=== PATIENT | female | born 1935 | race Caucasian/White ===

== ENCOUNTER → 2020-04-12 15:04 | Outpatient (BNVA) | payer MEDICARE, SELFPAY | PROVIDERS: PCP Family Medicine; Visit Provider Nurse Practitioner Family | DX: S67.196A Crushing injury of right little finger, initial encounter (principal); S62.616A Displaced fracture of proximal phalanx of right little finger, initial encounter for closed fracture; M19.041 Primary osteoarthritis, right hand; M79.89 Other specified soft tissue disorders; W23.0XXA Caught, crushed, jammed, or pinched between moving objects, initial encounter | CPT/HCPCS: 73140 ==

== ENCOUNTER → 2020-05-03 11:40 | Outpatient (BNVA) | payer MEDICARE, SELFPAY | PROVIDERS: PCP Family Medicine; Referring Provider Nurse Practitioner Family; Visit Provider Specialist | DX: M79.644 Pain in right finger(s) (principal) | CPT/HCPCS: 73140 ==

== ENCOUNTER 2020-07-13 13:22 | Outpatient (CLI) | payer MEDICARE, SELFPAY ==
--- NOTE | 2020-07-13 12:30 | XR_ITS ---
WS: [id number] RIBS LEFT WITH CHEST TECHNIQUE: 3 views of the left ribs with PA chest CLINICAL INFORMATION: rib pain post fall on 07/03/20 COMPARISON: FINDINGS: Moderate chronic emphysematous changes. No acute pulmonary infiltrates. Normal cardiac silhouette. To rtuous thoracic aorta. Aortic calcification. Osteopenia. Thoracolumbar scoliosis with chronic appeari ng compression deformities in the lower thoracic and upper lumbar spine. Advanced degenerative arthritis left glenohumeral joint with joint space narrowing. No visualized acu te left rib fractures. XR/XR ribs LT mn 3V w CXR1V [id number] IMPRESSION: 1. No visualized acute left rib fractures. 2. Lungs are well aerated. 3. Thoracolumbar scoliosis.
== END 2020-07-13 13:23 | disposition home or self-care (01) ==
LOC: RADWPI 13:26
PROVIDERS: PCP Family Medicine; Visit Provider Nurse Practitioner Family
DX: R07.81 Pleurodynia (principal); M41.85 Other forms of scoliosis, thoracolumbar region
CPT/HCPCS: 71101

== ENCOUNTER → 2020-08-03 16:00 | Outpatient (BNVA) | payer MEDICARE, SELFPAY | PROVIDERS: PCP Family Medicine; Visit Provider Nurse Practitioner Family | DX: Z11.59 Encounter for screening for other viral diseases (principal); Z20.828 Contact with and (suspected) exposure to other viral communicable diseases; J06.9 Acute upper respiratory infection, unspecified | CPT/HCPCS: 87635 ==

== ENCOUNTER → 2020-12-08 10:41 | Outpatient (BNVA) | payer MEDICARE, SELFPAY | PROVIDERS: PCP Family Medicine; Visit Provider Nurse Practitioner Family | DX: Z13.6 Encounter for screening for cardiovascular disorders (principal); R60.0 Localized edema; E78.2 Mixed hyperlipidemia; M79.10 Myalgia, unspecified site; Z79.899 Other long term (current) drug therapy | CPT/HCPCS: 80053; 80061; 82306; 83036; 84443; 85025 ==

== ENCOUNTER → 2021-06-15 00:01 | Outpatient (BNVA) | payer MEDICARE, SELFPAY | PROVIDERS: PCP Family Medicine; Visit Provider Nurse Practitioner Family | DX: E78.2 Mixed hyperlipidemia (principal); I10 Essential (primary) hypertension; M79.7 Fibromyalgia; R73.9 Hyperglycemia, unspecified | CPT/HCPCS: 80053; 80061; 82306; 82607; 83036; 84443; 85025; 85651; 86140 ==

== ENCOUNTER 2021-06-21 12:28 | Outpatient (CLI) | payer MEDICARE, SELFPAY ==
--- NOTE | 2021-06-21 12:45 | USCV_ITS ---
Valeria Knight Age: 85 Gender: F : 1935 Exam Date: 06/21/2021 12:50 Ordering Phys: Diana Richardson MD ([email or web address]) Technologist: Mariama Vidal [place] [facility] [place]: Supraventricular tachycardia BP: 120 / 73 HR: 64 Rhythm: Other Technical Quality: Adequate MEASUREMENTS (Male / Female) Normal Values 2D ECHO LV Diastolic Diameter PLAX 4.2 cm 4.2 - 5.9 / 3.9 - 5.3 cm LV Systolic Diameter PLAX 2.6 cm IVS Diastolic Thickness 1.3 cm 0.6 - 1.0 / 0.6 - 0.9 cm IVS Systolic Thickness 1.3 cm LVPW Diastolic Thickness 1.4 cm 0.6 - 1.0 / 0.6 - 0.9 cm LVPW Systolic Thickness 1.6 cm RV Chamber Size 2.6 cm LVOT Diameter 2.0 cm LV Ejection Fraction 2D Teich 66.9 % LV Ejection Fraction MOD 2C 31.7 % LV Ejection Fraction 2C AL 29.6 % LA Diameter 2.5 cm LA Width 3.4 cm LA Height 3.9 cm RA Width 3.6 cm RA Height 3.8 cm Aorta at Sinotubular Diameter 2.2 cm M-MODE Aortic Annulus Diameter 3.0 cm LA Ao Ratio MM 0.8 DOPPLER AV Peak Velocity 105.0 cm/s LVOT Peak Velocity 90.0 cm/s AV Area Cont Eq vti 2.1 cm squared AV Area Cont Eq pk 2.7 cm squared MV Area PHT 3.4 cm squared Mitral E to A Ratio 1.8 MV E' Velocity 66.8 cm/s Mitral E to MV E' Ratio 13.1 Mitral E to LV E' Lateral Ratio 12.6 Mitral E to LV E' Septal Ratio 13.7 TR Peak Velocity 253.7 cm/s TR Peak Gradient 25.7 mmHg TV Peak E Velocity 39.0 cm/s Right Atrial Pressure 3.0 mmHg Pulmonary Artery Systolic Pressu 28.7 mmHg PV Peak Velocity 77.0 cm/s RV Acceleration Time 0.1 s RV Ejection Time 0.3 s RV AcT/ET 0.3 FINDINGS Left Ventricle Normal left ventricular size, systolic function and mildly increased wall thickness, with no regional wall motion abnormalities. Left ventricular ejection fraction is estimated at 60 %. Normal diastolic function. Right Ventricle Normal right ventricular size and systolic function. Right ventricular systolic pressure 28.7 mmHg. Right Atrium Normal right atrial size. Left Atrium Mildly increased left atrial size. Mitral Valve Moderate mitral annular calcification. Mildly thickened mitral valve. No mitral valve stenosis. Mild mitral valve regurgitation. Aortic Valve Mildly thickened trileaflet aortic valve. No aortic valve stenosis. Mxwa-rt-apjayhnw aortic valve regurgitation. Tricuspid Valve Structurally normal tricuspid valve. Mild tricuspid valve regurgitation. Pulmonic Valve Structurally normal pulmonic valve. Trace pulmonary valve regurgitation. Pericardium No pericardial effusion. Aorta Normal size aortic root and proximal ascending aorta. CONCLUSIONS 1. Normal left ventricular size, systolic function and mildly increased wall thickness, with no regional wall motion abnormalities. Left ventricular ejection fraction is estimated at 60 %. Normal diastolic function. 2. Ecdz-ei-ciaokplb aortic valve regurgitation. 3. Mildly increased left atrial size. 4 Mild tricuspid valve regurgitation. 5. No prior similar studies to compare. Diana Richardson MD (Electronically Signed) Final Date: 22 June 2021 18:58 S
== END 2021-06-21 12:29 | disposition home or self-care (01) ==
LOC: RAD 12:31
PROVIDERS: PCP Family Medicine; Visit Provider Internal Medicine Cardiovascular Disease
DX: I47.1 Supraventricular tachycardia (principal); I25.10 Atherosclerotic heart disease of native coronary artery without angina pectoris; I08.2 Rheumatic disorders of both aortic and tricuspid valves
CPT/HCPCS: 93306

== ENCOUNTER → 2021-11-27 12:24 | Outpatient (BNVA) | payer MEDICARE, SELFPAY | PROVIDERS: PCP Family Medicine; Visit Provider Nurse Practitioner Family | DX: I10 Essential (primary) hypertension (principal); M79.7 Fibromyalgia; R73.9 Hyperglycemia, unspecified; R51.9 Headache, unspecified; M25.512 Pain in left shoulder; E78.2 Mixed hyperlipidemia | CPT/HCPCS: 80053; 80061; 82306; 82607; 83036; 84443; 85025 ==

== ENCOUNTER 2022-01-08 09:07 | Outpatient (CLI) | payer MEDICARE, SELFPAY ==
--- NOTE | 2022-01-08 09:30 | MR_ITS ---
WS: [id number] MRI LEFT SHOULDER NONCONTRAST TECHNIQUE: Sagittal T2, coronal T1, T2 and proton density imaging. Axial gradient PDE imaging. CLINICAL INFORMATION: M25.512 - Pain in left shoulder COMPARISON: None. FINDINGS: Moderate degenerative arthritis AC joint. Narrowing of the subacromial space. Slight subacromial spur ring. Tiny amount of edema at the AC joint. Chronic appearing healed fracture involving the humeral n neena. This appears similar to 2012 radiograph. Hypertrophic spurring along the medial humeral head and neck. Chronic thinning of the distal supraspinatus appears intact. Normal infraspinatus. Normal teres minor . Chronic appearing atrophy of the subscapularis muscle belly. Partial-thickness tear involving the d istal subscapularis with medial subluxation of the biceps tendon. Intra-articular loose body in the d orsal glenohumeral joint along the posterior glenoid rim. Marked degenerative fraying and irregularit y of the glenoid labrum. Cluster of ganglion cysts along the inferior glenoid rim and neck of the sca pula. MR/MR shoulder LT wo con* [id number] IMPRESSION: 1. Moderate degenerative arthritis AC joint with mild downsloping acromion. Sl ight subacromial spurring. Mild edema at the AC joint. 2. Chronic thinning of the supraspinatus appears intact. Infraspinatus and ter es minor appears intact. Chronic appearing tear of the distal subscapularis wit h medial subluxation of the biceps tendon. Chronic atrophy of the subscapularis muscle belly. 3. Marked hypertrophic changes at the glenohumeral joint with hypertrophic spu rring along the medial humeral head and neck. Narrowing of the glenohumeral kylah nt. 4. Intra-articular loose body in the dorsal glenohumeral joint adjacent to the posterior glenoid rim. 5. Chronic appearing healed fracture involving the humeral neck. This is simil ar to 2012. No evidence of acute fracture.
== END 2022-01-08 09:08 | disposition home or self-care (01) ==
LOC: RAD 09:12
PROVIDERS: PCP Family Medicine; Visit Provider Nurse Practitioner Family
DX: M19.012 Primary osteoarthritis, left shoulder (principal); R60.0 Localized edema
CPT/HCPCS: 73221

== ENCOUNTER 2022-01-11 06:00 | Outpatient (RCR) | payer MEDICARE, SELFPAY | END 2022-02-09 23:59 | disposition home or self-care (01) | LOC: TPT 06:00 | PROVIDERS: PCP Family Medicine; Referring Provider Nurse Practitioner Family; Visit Provider Nurse Practitioner Family | DX: M25.512 Pain in left shoulder (principal) | CPT/HCPCS: 97110; 97140; 97163 ==

== ENCOUNTER 2022-02-10 06:00 | Outpatient (RCR) | payer MEDICARE, SELFPAY | END 2022-03-12 23:59 | disposition home or self-care (01) | LOC: TPT 06:00 | PROVIDERS: PCP Family Medicine; Referring Provider Nurse Practitioner Family; Visit Provider Nurse Practitioner Family | DX: M25.512 Pain in left shoulder (principal) | CPT/HCPCS: 97110; 97140 ==

== ENCOUNTER 2022-03-13 06:00 | Outpatient (RCR) | payer MEDICARE, SELFPAY | END 2022-03-19 23:59 | disposition home or self-care (01) | LOC: TPT 06:00 | PROVIDERS: PCP Family Medicine; Referring Provider Nurse Practitioner Family; Visit Provider Nurse Practitioner Family | DX: M25.512 Pain in left shoulder (principal) | CPT/HCPCS: 97110 ==

== ENCOUNTER → 2022-03-26 14:27 | Outpatient (BNVA) | payer MEDICARE, SELFPAY | PROVIDERS: PCP Family Medicine; Visit Provider Nurse Practitioner Family | DX: R05.9 Cough, unspecified (principal); B34.9 Viral infection, unspecified | CPT/HCPCS: 87635 ==

== ENCOUNTER → 2022-04-01 14:30 | Outpatient (BNVA) | payer MEDICARE, SELFPAY | PROVIDERS: PCP Family Medicine; Visit Provider Nurse Practitioner | DX: R53.83 Other fatigue (principal); R05.9 Cough, unspecified | CPT/HCPCS: 71046; 80053; 81000; 84443; 85025 ==

== ENCOUNTER → 2022-04-02 07:31 | Outpatient (BNVA) | payer MEDICARE, SELFPAY | PROVIDERS: PCP Family Medicine; Visit Provider Nurse Practitioner | DX: R53.83 Other fatigue (principal); R05.9 Cough, unspecified; R94.31 Abnormal electrocardiogram [ECG] [EKG] | CPT/HCPCS: 84484 ==

== ENCOUNTER → 2022-04-03 10:25 | Outpatient (BNVA) | payer MEDICARE, SELFPAY | PROVIDERS: PCP Family Medicine; Visit Provider Internal Medicine Cardiovascular Disease | DX: I25.10 Atherosclerotic heart disease of native coronary artery without angina pectoris (principal); I45.10 Unspecified right bundle-branch block; I47.1 Supraventricular tachycardia; E78.2 Mixed hyperlipidemia; Z98.61 Coronary angioplasty status; R74.8 Abnormal levels of other serum enzymes; I10 Essential (primary) hypertension; Z87.891 Personal history of nicotine dependence | CPT/HCPCS: 99214 ==

== ENCOUNTER → 2022-04-08 10:41 | Outpatient (BNVA) | payer MEDICARE, SELFPAY | PROVIDERS: PCP Family Medicine; Visit Provider Nurse Practitioner | DX: R74.8 Abnormal levels of other serum enzymes (principal); R53.83 Other fatigue; R63.0 Anorexia; R63.4 Abnormal weight loss; R53.1 Weakness | CPT/HCPCS: 80053; 86705; 86706; 86709; 86803; 87340 ==

== ENCOUNTER → 2022-05-28 10:41 | Outpatient (BNVA) | payer MEDICARE, SELFPAY | PROVIDERS: PCP Family Medicine; Visit Provider Family Medicine | DX: M79.7 Fibromyalgia (principal); I10 Essential (primary) hypertension; E78.2 Mixed hyperlipidemia; K21.9 Gastro-esophageal reflux disease without esophagitis | CPT/HCPCS: 80053; 80061; 84443; 85025 ==

== ENCOUNTER 2022-06-07 13:45 | Outpatient (CLI) | payer MEDICARE, SELFPAY ==
--- NOTE | 2022-06-07 15:00 | CTR_ITS ---
PROCEDURE INFORMATION: Exam: CT Abdomen And Pelvis Without Contrast Exam date and time: 06/07/2022 3:19 PM Age: 86 years old Clinical indication: Other: Unexplained weight loss, weakness in legs; Additional info: R63.4 - abnormal weight loss TECHNIQUE: Imaging protocol: Computed tomography of the abdomen and pelvis without contrast. Radiation optimization: All CT scans at this facility use at least one of these dose optimization techniques: automated exposure control; mA and/or kV adjustment per patient size (includes targeted exams where dose is matched to clinical indication); or iterative reconstruction. COMPARISON: CR XR chest 2V* [id number] 04/01/2022 2:30 PM RADIATION DOSE METRICS: Total DLP (mGy-cm): 924.03 FINDINGS: Lungs: The visualized portions of the lung bases are normal. The heart size is at the upper limit of normal. Some mitral and aortic annulus ossifications are seen. Liver: Appears unremarkable on the non-contrast CT. Gallbladder and bile ducts: No calcified stones. No ductal dilation. Pancreas: Appears unremarkable on the non-contrast CT. No ductal dilation. Spleen: Appears unremarkable on the non-contrast CT. No splenomegaly. Adrenal glands: Normal. No mass. Kidneys and ureters: Left kidney upper pole 7 x 9 mm simple cyst is noted. Left kidney lower pole 2.6 x 2.6 cm simple cyst is seen. No hydronephrosis, ureterectasis or ureteral calculi. Stomach and bowel: The contrast opacified stomach shows nonspecific mild gastric fold prominence. Tiny hiatal hernia is seen. The contrast opacified small bowel loops in the abdomen and pelvis appear unremarkable. The noncontrast opacified colonic loops show owmv-vs-nwlknhga gas and fecal material in the ascending and transverse colon. The descending and sigmoid colon are not well distended, limiting assessment. Mild sigmoid colonic diverticulosis is seen, without CT evidence of diverticulitis. Appendix: No appendix is specifically identified. There is no evidence of fluid collections or inflammatory stranding in the right lower quadrant. Intraperitoneal space: No abdominal ascites. No free air. There are numerous benign phleboliths in the pelvis. Vasculature: No abdominal aortic aneurysm. Moderate to severe atherosclerotic vascular calcifications are seen with calcifications at the origins of the mesenteric and renal arteries. Lymph nodes: No enlarged lymph nodes. Urinary bladder: The bladder is not well distended, limiting assessment. Reproductive: Unremarkable as visualized. Bones/joints: No acute osseous abnormality seen. There is mild levoconvex rotoscoliosis of the upper lumbar spine. Severe degenerative disc disease and facet disease changes are seen throughout the lumbar spine. There are multiple levels of moderate to severe stenosis. There appears to be moderate L3-L4 and L4-L5 central spinal stenosis. Assessment is limited on CT. Mild bilateral hip degenerative changes are seen. Soft tissues: Unremarkable. CT/CT abdomen pelvis wo con [id number] IMPRESSION: 1. No acute abnormality seen on the non-contrast abdominal and pelvic CT. 2. Severe degenerative changes of the lumbar spine, as noted above. 3. Moderate to severe atherosclerotic vascular calcifications, as noted above. COMMENTS: Consistent with the [employer]'s Incidental Findings Committee white paper (J Am Kishor Radiol 2018): Any incidental renal lesion less than 1 cm or classified as too small to characterize, or any incidental cystic renal lesion characterized as simple-appearing, is likely benign. No follow-up imaging is recommended for these lesions per consensus recommendations based on imaging criteria.
== END 2022-06-07 13:46 | disposition home or self-care (01) ==
LOC: RAD 13:46
PROVIDERS: PCP Family Medicine; Visit Provider Nurse Practitioner
DX: R63.4 Abnormal weight loss (principal); R74.8 Abnormal levels of other serum enzymes; I70.8 Atherosclerosis of other arteries
CPT/HCPCS: 74176

== ENCOUNTER → 2022-06-10 13:14 | Outpatient (BNVA) | payer MEDICARE, SELFPAY | PROVIDERS: PCP Family Medicine; Visit Provider Nurse Practitioner Family | DX: J06.9 Acute upper respiratory infection, unspecified (principal); R05.9 Cough, unspecified; J40 Bronchitis, not specified as acute or chronic; Z20.822 Contact with and (suspected) exposure to COVID-19 | CPT/HCPCS: 80053; 87635 ==

== ENCOUNTER → 2022-09-26 10:57 | Outpatient (BNVA) | payer MEDICARE, SELFPAY | PROVIDERS: PCP Family Medicine; Visit Provider Internal Medicine Cardiovascular Disease | DX: I25.10 Atherosclerotic heart disease of native coronary artery without angina pectoris (principal); I10 Essential (primary) hypertension; Z98.61 Coronary angioplasty status; Z87.891 Personal history of nicotine dependence | CPT/HCPCS: 99214 ==

== ENCOUNTER 2022-12-25 19:24 | Emergency (ER) | payer MEDICARE, SELFPAY ==
[2022-12-25 19:25] VITALS: BMI 25.6
--- NOTE | 2022-12-25 19:29 | CTR_ITS ---
PROCEDURE INFORMATION: Exam: CT Head Without Contrast Exam date and time: 12/25/2022 7:48 PM Age: 87 years old Clinical indication: Speech disturbance; Patient HX: Arrival via EMS for slurred speech per family. ; Additional info: AMS TECHNIQUE: Imaging protocol: Computed tomography of the head without contrast. Radiation optimization: All CT scans at this facility use at least one of these dose optimization techniques: automated exposure control; mA and/or kV adjustment per patient size (includes targeted exams where dose is matched to clinical indication); or iterative reconstruction. REPORTING DATA: Count of CT and Cardiac NM exams in prior 12 months: This patient has received [address] and 0 known cardiac nuclear medicine studies in the 12 months prior to the current study. COMPARISON: CT head wo/w con [id number] 03/16/2019 2:37 PM RADIATION DOSE METRICS: Total DLP (mGy-cm): 845.18 FINDINGS: Brain: Large amount diffuse white matter disease likely reflecting chronic microvascular ischemic changes. Cerebral ventricles: No ventriculomegaly. Paranasal sinuses: Visualized sinuses are unremarkable. No fluid levels. Mastoid air cells: Visualized mastoid air cells are well aerated. Bones/joints: Unremarkable. No acute fracture. Soft tissues: Unremarkable. CT/CT head wo con* [id number] IMPRESSION: Negative for intracranial hemorrhage or mass effect.
--- NOTE | 2022-12-25 19:29 | XRR_ITS ---
PROCEDURE INFORMATION: Exam: XR Chest Exam date and time: 12/25/2022 7:49 PM Age: 87 years old Clinical indication: Cough; Additional info: Mas TECHNIQUE: Imaging protocol: Radiologic exam of the chest. Views: 1 view. COMPARISON: CR XR chest 2V* [id number] 04/01/2022 2:30 PM FINDINGS: Lungs: Unremarkable. No consolidation. Pleural spaces: Unremarkable. No pleural effusion. No pneumothorax. Heart/Mediastinum: Cardiomegaly. Bones/joints: Unremarkable. XR/XR chest 1V portable [id number] IMPRESSION: Cardiomegaly, negative for infiltrate.
--- NOTE | 2022-12-25 19:30 | ECG_ITS ---
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
--- NOTE | 2022-12-25 19:30 | W.ED.NEUROSD ---
HPI - Neuro Symptoms/Deficit General: Chief Complaint: Altered Mental Status Stated Complaint: ams Time Seen by Provider: 12/25/22 19:26 Source: patient and EMS Mode of arrival: EMS Limitations: no limitations History of Present Illness: 87-year-old female Primus was talking to her son on the phone roughly an hour ago over the phone she was having confusion and slurred speech it started abruptly per EMS and states it lasted 20 minutes by time EMS arrived her symptoms completely resolved she is asymptomatic currently she states she has a mild headache she has no slurred speech able answer all my questions appropriately denies any weakness she is ambulatory without any problems. Associated symptoms: Deny chest pain, headache(s), nausea or vomiting Review of Systems Const: Denies: fever(s), chills, body aches or change in appetite Eyes: Denies: blurry vision or eye discomfort ENMT: Denies: throat pain or dental pain Card: Denies: chest pain Resp: Denies: dyspnea GI: Denies: abdominal pain, nausea, vomiting or diarrhea : Denies: dysuria Musc: Denies: neck pain or back pain Skin/Breast: Denies: rash Neuro: Reports: confusion and Slurred speech present; Denies: headache(s) Psych: Denies: depression Stepan/Lymph: Denies: easy bruising All/Imm: Denies: urticaria PFSH ED PFSH: Medical History DON inhibitor intolerance ASHD (arteriosclerotic heart disease) Fibromyalgia Hyperlipemia, mixed Lower extremity edema PSVT (paroxysmal supraventricular tachycardia) Surgical History S/P dialysis catheter insertion S/P PTCA (percutaneous transluminal coronary angioplasty) Family History Mother Cancer COLON Social History Smoking and tobacco status: former smoker Quit status (tobacco): has quit using tobacco Year quit tobacco: 1999 Former quit date comment: PPD x 40 yrs Second hand smoke exposure: No Smoking risk assessment/counseling performed?: No Alcohol intake: current Alcohol intake frequency: 0-2 Drinks per Day Desire information about alcohol rehabilitation?: No Counseling given: No Desire information about substance/drug rehabilitation?: No Counseling given: No Adopted: No Caregiver/support person: No Lives independently: Yes Household members: none Housing: House Marital status: / service: No Current occupational status: retired Current gender identity: Female Special prema needs: No NIH stroke score NIHSS: Level Of Consciousness - 1a: 0 Level Of Consciousness Questions - 1b: Both Correct Level Of Consciousness Commands - 1c: Both Correct Best Gaze - 2: Normal Visual N[place] - 3: No Visual Loss Facial Palsy - 4: Normal Motor Arm Right - 5: No Drift Motor Arm Left - 5: No Drift Motor Leg Right - 6: No Drift Motor Leg Left - 6: No Drift Limb Ataxia - 7: Absent Sensory - 8: Normal Best Language - 9: No Aphasia Dysarthia - 10: Normal Extinction And Inattention - 11: 0 Score: Total Score: 0 Physical Exam Const: COMMON NORMALS: no acute distress, patient oriented x3 and healthy appearing HENMT: COMMON NORMALS: normocephalic and atraumatic HEAD & SCALP: normocephalic and atraumatic Eye: COMMON NORMALS: Equal, round and reactive pupils present and EOMs intact bilaterally PUPIL: Yes Equal, round and reactive pupils present Neck/C-Spine: COMMON NORMALS: full ROM and supple Chest: COMMONS NORMALS: normal inspection of the chest and normal palpation of entire chest wall Resp: COMMON NORMALS: normal respiratory effort, No retractions, No use of accessory muscles and clear to auscultation bilaterally AUSCULTATION: clear to auscultation bilaterally Cardio: COMMON NORMALS: regular rate, regular rhythm and No murmurs present (Cardio) RATE: regular rate RHYTHM: regular rhythm GI: COMMON NORMALS: Normal to inspection, nondistended, normoactive bowel sounds present, Soft to palpation, non-tender and no masses PALPATION: Yes Soft to palpation Extremity: COMMON NORMALS: normal to inspection and full ROM Neuro: COMMON NORMALS: patient oriented x3, moves all extremities and no focal motor deficits Psych: COMMON NORMALS: mental status grossly normal, Normal thought process present and cooperative THOUGHT PROCESS: Normal thought process present Skin: COMMON NORMALS: no rashes or lesions noted and no wounds GENERAL SKIN EXAM: no rashes or lesions noted Course Vital Signs: Vital signs: Vital Signs Temperature 98.8 F 12/25/22 19:31 Pulse Rate 58 L 03/15/23 20:30 Respiratory Rate 18 12/25/22 20:30 Blood Pressure 167/70 12/25/22 20:30 Pulse Oximetry 98 12/25/22 20:30 Oxygen Delivery Me thod 12/25/22 19:31 MDM - Neuro Symptoms/Deficit Medical Decision Making Patient presents here with a likely TIA that is since resolved she is well-appearing here head CT and blood work are all normal she is already on atorvastatin and baby aspirin is to continue she is to follow-up with PCP in 2 to 5 days and return if worsening she understands agrees to plan. Lab Data 12/25/22 19:36 12/25/22 19:36 Radiology Impressions Chest X-Ray 12/25/22 19:29 IMPRESSION: Cardiomegaly, negative for infiltrate. Head CT 12/25/22 19:29 IMPRESSION: Negative for intracranial hemorrhage or mass effect. Laboratory Results WBC 6.4 10^3/uL (4.0-10.0) 12/25/22 19:36 RBC 4.37 10^6/uL (4.1-5.3) 12/25/22 19:36 Hgb 12.5 g/dL (11.5-15.3) 12/25/22 19:36 Hct 39.9 % (37.0-47.0) 12/25/22 19:36 MCV 91.3 fl (81-99) 12/25/22 19:36 MCH 28.6 pg (28.0-34.0) 12/25/22 19:36 MCHC 31.3 g/dL (30.0-36.0) 12/25/22 19:36 RDW 13.8 % (12.1-15.1) 12/25/22 19:36 Plt Count 223 10^3/cmm (130-400) 12/25/22 19:36 MPV 10.4 fL (7.4-10.4) 12/25/22 19:36 Neut % (Auto) 59.1 % 12/25/22 19:36 Lymph % (Auto) 30.1 % 12/25/22 19:36 [place] % (Auto) 6.9 % 12/25/22 19:36 Eos % (Auto) 2.8 % 12/25/22 19:36 Baso % (Auto) 0.9 % 12/25/22 19:36 Neut # (Auto) 3.75 10^3/uL (1.8-7.7) 12/25/22 19:36 Lymph # (Auto) 1.9 10^3/uL (0.8-4.8) 12/25/22 19:36 [place] # (Auto) 0.4 10^3/uL (0.2-0.9) 12/25/22 19:36 Eos # (Auto) 0.2 10^3/uL (0.0-0.8) 12/25/22 19:36 Baso # (Auto) 0.1 10^3/uL (0.0-0.1) 12/25/22 19:36 Nucleated RBC % (auto) 0 % 12/25/22 19:36 Nucleated RBCs # 0.0 /100WBC 12/25/22 19:36 PT 12.90 SECONDS (12.1-14.9) 12/25/22 19:36 INR 0.94 (0.8-1.2) 12/25/22 19:36 Sodium 140 mmol/L (136-145) 12/25/22 19:36 Potassium 3.8 mmol/L (3.5-5.1) 12/25/22 19:36 Chloride 101 mmol/L (98-107) 12/25/22 19:36 Carbon Dioxide 26 mmol/L (22-29) 12/25/22 19:36 Anion Gap 16.8 (5-19) 12/25/22 19:36 BUN 27 mg/dL (8-23) H 12/25/22 19:36 Creatinine 1.0 mg/dL (0.5-0.9) H 12/25/22 19:36 GFR Calculation Not Reportable 12/25/22 19:36 Glucose 121 mg/dL (65-115) H 12/25/22 19:36 POC Glucose 113 mg/dL (70-110) H 12/25/22 19:38 Calculated Osmolality 296 mOsm/kg (285-295) H 12/25/22 19:36 Calcium 9.3 mg/dL (8.5-10.5) 12/25/22 19:36 Total Bilirubin 0.4 mg/dL (0.15-1.2) 12/25/22 19:36 AST 24 U/L (0-32) 12/25/22 19:36 ALT 13 U/L (0-33) 12/25/22 19:36 Alkaline Phosphatase 101 U/L (35-105) 12/25/22 19:36 Total Protein 6.6 g/dL (6.6-8.7) 12/25/22 19:36 Albumin 4.2 g/dL (3.5-5.2) 12/25/22 19:36 Globulin 2.4 g/dL (1.3-4.6) 12/25/22 19:36 EKG Data EKG 1: I personally reviewed and interpreted this EKG as follows: EKG interpretation date: 12/25/22 EKG interpretation time: 19:30 Interpretation: sinus kanika hr [address] or t wave abnormalities qrs 134 qtc 471 Discharge Plan Discharge Patient Disposition: Home Clinical Impression: TIA (transient ischemic attack) Condition: Stable Prescriptions: No Action aspirin [Aspir-81] 81 mg tablet,delayed release (DR/EC) 162 mg PO DAILY Premarin 0.625 mg/gram cream 0.625 mg VAGINAL .WEEKLY PRN Rx Instructions: off 5 days; repeat cycle nitroglycerin [Nitrostat] 0.4 mg tablet, sublingual 0.4 mg SUBLINGUAL Q5M PRN (Reason: chest pain) Qty: 25 6RF Rx Instructions: do not exceed 3 doses per episode multivitamin Tablet 1 tab PO DAILY omeprazole magnesium [Prilosec OTC] 20 mg tablet,delayed release (DR/EC) 20 mg PO .3 days weekly budesonide-formoterol [Symbicort] 160-4.5 mcg/actuation HFA aerosol inhaler 2 puff inhalation Q12H PRN albuterol sulfate [ProAir HFA] 90 mcg/actuation HFA aerosol inhaler 2 puff inhalation QID PRN (Reason: shortness of breath or wheezing) Qty: 8.5 4RF duloxetine 60 mg capsule,delayed release(DR/EC) See Rx Instructions .ROUTE .COMPLEX Qty: 90 0RF Dose Instruction: Take 1 capsule by mouth once daily Rx Instructions: Take 1 capsule by mouth once daily hydrochlorothiazide 25 mg tablet 25 mg PO DAILY PRN (Reason: edema) Qty: 90 1RF metoprolol tartrate 25 mg tablet 12.5 mg PO DAILY Qty: 45 3RF losartan 100 mg tablet 100 mg PO DAILY Qty: 90 3RF verapamil 240 mg tablet extended release See Rx Instructions .ROUTE .COMPLEX Qty: 90 0RF Dose Instruction: Take 1 tablet by mouth once daily Rx Instructions: Take 1 tablet by mouth once daily atorvastatin 40 mg tablet See Rx Instructions .ROUTE .COMPLEX Qty: 90 0RF Dose Instruction: Take 1 tablet by mouth once daily Rx Instructions: Take 1 tablet by mouth once daily meloxicam 7.5 mg tablet See Rx Instructions .ROUTE .COMPLEX Qty: 90 0RF Dose Instruction: Take 1 tablet by mouth once daily Rx Instructions: Take 1 tablet by mouth once daily Discharge Orders: Discharge ED (Routine); Ordered 12/25/22 Ordered By: Cristina Benjamin Referrals: Daya Bowles MD [Primary Care Provider] - Discharge Diet: Advance as tolerated Discharge Activity: Resume usual activity Patient Instructions: Transient Ischemic Attack (ED) Coding Level of Care Code ED Certified Ophthalmic Technologist for David Saeed
[2022-12-25 19:31] VITALS: BP 171/71; PULSE 59; RESP 16; TEMP 37.1; O2SAT 97
--- NOTE | 2022-12-25 19:31 | PC.NURSE ---
allergy band placed on patient at this time
[2022-12-25 19:42] VITALS: BP 171/71; PULSE 55; RESP 16; O2SAT 98
[2022-12-25 19:42] LABS: Glucose Point of Care 113 mg/dL (70-110)
[2022-12-25 19:48] LABS: Basophils # 0.1 10^3/uL (0.0-0.1); Basophils % 0.9 %; Eosinophils # 0.2 10^3/uL (0.0-0.8); Eosinophils % 2.8 %; Hematocrit 39.9 % (37.0-47.0); Hemoglobin 12.5 g/dL (11.5-15.3); Lymphocytes # 1.9 10^3/uL (0.8-4.8); Lymphocytes % 30.1 %; Mean Corpuscular HGB Conc 31.3 g/dL (30.0-36.0); Mean Corpuscular Hemoglobin 28.6 pg (28.0-34.0); Mean Corpuscular Volume 91.3 fl (81-99); Mean Platelet Volume 10.4 fL (7.4-10.4); Monocytes # 0.4 10^3/uL (0.2-0.9); Monocytes % 6.9 %; Neutrophils # 3.75 10^3/uL (1.8-7.7); Neutrophils % 59.1 %; Nucleated Red Blood Cells % 0 %; Platelet Count 223 10^3/cmm (130-400); Red Blood Count 4.37 10^6/uL (4.1-5.3); Red Cell Distribution Width 13.8 % (12.1-15.1); White Blood Count 6.4 10^3/uL (4.0-10.0)
[2022-12-25 20:00] VITALS: BP 171/71; PULSE 59; O2SAT 98
[2022-12-25 20:06] LABS: INR 0.94 (0.8-1.2)
[2022-12-25 20:07] LABS: Alanine Aminotransferase 13 U/L (0-33); Albumin Level 4.2 g/dL (3.5-5.2); Alkaline Phosphatase 101 U/L (35-105); Anion Gap 16.8 (5-19); Aspartate Amino Transferase 24 U/L (0-32); Blood Urea Nitrogen 27 mg/dL (8-23); Calcium 9.3 mg/dL (8.5-10.5); Carbon Dioxide 26 mmol/L (22-29); Chloride 101 mmol/L (98-107); Globulin 2.4 g/dL (1.3-4.6); Glucose 121 mg/dL (65-115); Osmolality Calculated 296 mOsm/kg (285-295); Potassium 3.8 mmol/L (3.5-5.1); Sodium 140 mmol/L (136-145); Total Bilirubin 0.4 mg/dL (0.15-1.2); Total Protein 6.6 g/dL (6.6-8.7)
[2022-12-25] MEDS: hyDRALAzine 20 mg/mL INJ 1 mL 10 MG IVP (20:23)
[2022-12-25 20:30] VITALS: BP 167/70; PULSE 58; RESP 18; O2SAT 98
[2022-12-25 20:56] VITALS: BP 152/64; PULSE 67; RESP 16; O2SAT 99
== END 2022-12-25 20:57 | disposition home or self-care (01) ==
PROVIDERS: Emergency Provider Emergency Medicine; PCP Family Medicine
DX: I51.7 Cardiomegaly (principal); E78.2 Mixed hyperlipidemia; Z87.891 Personal history of nicotine dependence
CPT/HCPCS: 36416; 70450; 71045; 80053; 82962; 85025; 85610; 93005; 96374; 99285; J0360

== ENCOUNTER → 2022-12-30 14:54 | Outpatient (BNVA) | payer MEDICARE, SELFPAY | PROVIDERS: PCP Family Medicine; Visit Provider Family Medicine | DX: R73.9 Hyperglycemia, unspecified (principal); G45.9 Transient cerebral ischemic attack, unspecified | CPT/HCPCS: 80048; 83036 ==

== ENCOUNTER → 2023-04-30 13:36 | Outpatient (BNVA) | payer MEDICARE, SELFPAY | PROVIDERS: PCP Family Medicine; Visit Provider Internal Medicine Cardiovascular Disease | DX: R55 Syncope and collapse (principal); M79.7 Fibromyalgia; I10 Essential (primary) hypertension; Z78.9 Other specified health status; I47.1 Supraventricular tachycardia; I25.10 Atherosclerotic heart disease of native coronary artery without angina pectoris; E78.2 Mixed hyperlipidemia; Z98.61 Coronary angioplasty status; Z87.891 Personal history of nicotine dependence | CPT/HCPCS: 99213 ==

== ENCOUNTER → 2023-06-25 10:50 | Outpatient (BNVA) | payer MEDICARE, SELFPAY | PROVIDERS: PCP Family Medicine; Visit Provider Internal Medicine Cardiovascular Disease | DX: R55 Syncope and collapse (principal); M79.7 Fibromyalgia; I10 Essential (primary) hypertension; Z78.9 Other specified health status; I47.1 Supraventricular tachycardia; I25.10 Atherosclerotic heart disease of native coronary artery without angina pectoris; E78.2 Mixed hyperlipidemia; Z98.61 Coronary angioplasty status; Z87.891 Personal history of nicotine dependence | CPT/HCPCS: 99213 ==

== ENCOUNTER → 2023-07-07 12:53 | Outpatient (BNVA) | payer MEDICARE, SELFPAY | PROVIDERS: PCP Family Medicine; Visit Provider Family Medicine | DX: E78.2 Mixed hyperlipidemia (principal); I10 Essential (primary) hypertension; K21.9 Gastro-esophageal reflux disease without esophagitis; M79.7 Fibromyalgia | CPT/HCPCS: 80053; 80061; 84443; 85025 ==

== ENCOUNTER → 2023-11-19 14:00 | Outpatient (BNVA) | payer MEDICARE, SELFPAY | PROVIDERS: PCP Family Medicine; Visit Provider Family Medicine | DX: M79.7 Fibromyalgia (principal); R60.0 Localized edema; I10 Essential (primary) hypertension; K21.9 Gastro-esophageal reflux disease without esophagitis; E78.2 Mixed hyperlipidemia; Z79.899 Other long term (current) drug therapy | CPT/HCPCS: 80053; 80061; 84443; 85025 ==

== ENCOUNTER → 2023-12-24 12:05 | Outpatient (BNVA) | payer MEDICARE, SELFPAY | PROVIDERS: PCP Family Medicine; Visit Provider Internal Medicine Cardiovascular Disease | DX: I25.10 Atherosclerotic heart disease of native coronary artery without angina pectoris (principal); E78.2 Mixed hyperlipidemia; Z78.9 Other specified health status; I10 Essential (primary) hypertension; Z98.61 Coronary angioplasty status; M79.7 Fibromyalgia; Z87.891 Personal history of nicotine dependence | CPT/HCPCS: 99213 ==

== ENCOUNTER → 2024-06-08 11:50 | Outpatient (BNVA) | payer MEDICARE, SELFPAY | PROVIDERS: PCP Family Medicine; Visit Provider Family Medicine | DX: I10 Essential (primary) hypertension (principal); E78.2 Mixed hyperlipidemia; K21.9 Gastro-esophageal reflux disease without esophagitis | CPT/HCPCS: 80053; 80061; 84443; 85025 ==

== ENCOUNTER 2024-06-09 17:56 | Inpatient (IN) | payer MEDICARE, SELFPAY ==
[2024-06-09] VITALS (9 sets, daily range): BP systolic 117–171; BP diastolic 63–75; PULSE 56–110; RESP 13–20; TEMP 36.6–36.7; O2SAT 93–98; BMI 25.3; BMI 26.2
--- NOTE | 2024-06-09 18:15 | CTR_ITS ---
PROCEDURE INFORMATION: Exam: CTA Head With Contrast, Arteriography Exam date and time: 06/09/2024 6:23 PM Age: 88 years old Clinical indication: Other: AMS; Additional info: CVA TECHNIQUE: Imaging protocol: Computed tomographic angiography of the head with contrast. Exam focused on the arteries. 3D rendering (Not supervised by radiologist): MIP and/or 3D reconstructed images were created by the technologist. Radiation optimization: All CT scans at this facility use at least one of these dose optimization techniques: automated exposure control; mA and/or kV adjustment per patient size (includes targeted exams where dose is matched to clinical indication); or iterative reconstruction. Contrast material: OMNI 350; Contrast volume: 100 ml; Contrast route: INTRAVENOUS (IV); COMPARISON: CT head thrombolytic [id number] 06/09/2024 6:19 PM RADIATION DOSE METRICS: Total DLP (mGy-cm): 459 FINDINGS: ANTERIOR CIRCULATION: Right internal carotid artery: Intracranial segment is patent with no significant stenosis. No aneurysm. Right middle cerebral artery: No occlusion or significant stenosis. No aneurysm. Right anterior cerebral artery: No occlusion or significant stenosis. No aneurysm. Left internal carotid artery: Intracranial segment is patent with no significant stenosis. No aneurysm. Left middle cerebral artery: No occlusion or significant stenosis. No aneurysm. Left anterior cerebral artery: No occlusion or significant stenosis. No aneurysm. POSTERIOR CIRCULATION: Right vertebral artery: No occlusion or significant stenosis. No aneurysm. Left vertebral artery: No occlusion or significant stenosis. No aneurysm. Basilar artery: No occlusion or significant stenosis. No aneurysm. Right posterior cerebral artery: No occlusion or significant stenosis. No aneurysm. Left posterior cerebral artery: No occlusion or significant stenosis. No aneurysm. Brain: No definite mass, mass effect, or midline shift. Cerebral ventricles: No ventriculomegaly. Bones/joints: Unremarkable. No acute fracture. Soft tissues: Unremarkable. PROCEDURE INFORMATION: Exam: CTA Neck With Contrast Exam date and time: 06/09/2024 6:23 PM Age: 88 years old Clinical indication: Other: AMS; Additional info: CVA TECHNIQUE: Imaging protocol: Computed tomographic angiography of the neck with contrast. Exam focused on the cervical segments of the vasculature. 3D rendering (Not supervised by radiologist): MIP and/or 3D reconstructed images were created by the technologist. Radiation optimization: All CT scans at this facility use at least one of these dose optimization techniques: automated exposure control; mA and/or kV adjustment per patient size (includes targeted exams where dose is matched to clinical indication); or iterative reconstruction. Contrast material: OMNI 350; Contrast volume: 100 ml; Contrast route: INTRAVENOUS (IV); COMPARISON: CT head thrombolytic [id number] 06/09/2024 6:19 PM RADIATION DOSE METRICS: Total DLP (mGy-cm): 459 FINDINGS: Right common carotid artery: No stenosis. No dissection or occlusion. Right internal carotid artery: No stenosis of the extracranial segment. No dissection or occlusion. Right external carotid artery: No occlusion or stenosis of the origin. Left common carotid artery: No stenosis. No dissection or occlusion. Left internal carotid artery: No stenosis of the extracranial segment. No dissection or occlusion. Left external carotid artery: No occlusion or stenosis of the origin. Right vertebral artery: No stenosis. No dissection or occlusion. Left vertebral artery: No stenosis. No dissection or occlusion. Thyroid: Multiple nodules noted within the thyroid the largest measuring 1 cm in size. Soft tissues: Normal. No significant soft tissue swelling. Bones/joints: No acute fracture. Lungs: Rounded consolidation noted in the superior aspect of the left lower lobe. CT/CT angio headneck* [id number] IMPRESSION: No large vessel stenosis or occlusion. IMPRESSION: 1. No stenosis or occlusion. 2. Rounded consolidation in the superior aspect of the left lower lobe. COMMENTS: Consistent with the [employer]'s Incidental Findings Committee white paper (J Am Kishor Radiol 2015): In patients aged 35 years and older with an incidental thyroid nodule equal to or greater than 1.[address], MRI or extrathyroidal US, further evaluation with dedicated thyroid US is recommended for patients with normal life expectancy and without comorbidities. For smaller nodules without suspicious features, no further evaluation or follow up is recommended. REFERENCES: NASCET CRITERIA. The degree of stenosis in the cervical segment of the internal carotid artery is based on NASCET criteria. Normal is no stenosis. Mild is less than 50% stenosis. Moderate is 50-69% stenosis. Severe is 70% to 99% stenosis. Total occlusion is no detectable patent lumen.
--- NOTE | 2024-06-09 18:15 | CTR_ITS ---
PROCEDURE INFORMATION: Exam: CT Head Without Contrast Exam date and time: 06/09/2024 6:19 PM Age: 88 years old Clinical indication: Stroke-like symptoms; Altered mental status/memory loss; Additional info: Symptoms of acute stroke TECHNIQUE: Imaging protocol: Computed tomography of the head without contrast. Radiation optimization: All CT scans at this facility use at least one of these dose optimization techniques: automated exposure control; mA and/or kV adjustment per patient size (includes targeted exams where dose is matched to clinical indication); or iterative reconstruction. Other technique: STROKE PROTOCOL was implemented. COMPARISON: CT head wo con* [id number] 12/25/2022 7:48 PM RADIATION DOSE METRICS: Total DLP (mGy-cm): 1040 FINDINGS: Brain: No hemorrhage. Broad region of hypoattenuation involving the lopez and white matter left parietal lobe that could reflect cytotoxic potential encephalomalacia from prior infarct. Moderate diffuse cerebral atrophy and advanced sequela of chronic small vessel ischemic disease. No mass effect. Cerebral ventricles: No ventriculomegaly. Paranasal sinuses: Visualized sinuses are unremarkable. No fluid levels. Mastoid air cells: Visualized mastoid air cells are well aerated. Bones: Unremarkable. No acute fracture. Soft tissues: Unremarkable. CT/CT head thrombolytic [id number] IMPRESSION: Age-indeterminate infarct in the left parietal lobe which was not present on prior imaging. ASSESSMENT: ASPECTS (Mathias Stroke Program Early CT Score) is 9.
--- NOTE | 2024-06-09 18:15 | XRR_ITS ---
PROCEDURE INFORMATION: Exam: XR Chest Exam date and time: 06/09/2024 6:41 PM Age: 88 years old Clinical indication: Other: CVA; Additional info: CVA, aphasia and possible stroke today TECHNIQUE: Imaging protocol: Radiologic exam of the chest. Views: 1 view. COMPARISON: CR XR chest 1V portable [id number] 12/25/2022 7:49 PM FINDINGS: Lungs: No consolidation. Pleural spaces: No pleural effusion. No pneumothorax. Heart/Mediastinum: No cardiomegaly. Bones/joints: Visualized osseous structures are intact. XR/XR chest 1V portable [id number] IMPRESSION: No acute findings.
--- NOTE | 2024-06-09 18:17 | ED_ITS ---
HPI - Neuro Symptoms/Deficit 2 General: Chief Complaint: Neuro Symptoms/Deficit Stated Complaint: trouble remembering things and talking Time Seen by Provider: 06/09/24 18:13 Source: patient Mode of arrival: ambulatory Limitations: no limitations History of Present Illness: 88-year-old female who states that she w tien up this morning at 9 AM having hard time speaking she does have word salad here having a difficult time finding words. States that she has had normal strength she is able to get up and walk denies any headache no known history of stroke. Associated symptoms: Deny chest pain, headache(s), nausea or vomiting Related Data Home Medications Medication Instructions Recorded Confirmed aspirin 81 mg tablet,delayed 162 mg PO DAILY 09/27/21 06/08/24 release (Aspir-) multivitamin 1 tab PO DAILY 09/27/21 06/08/24 conjugated estrogens 0.625 mg/gram 0.625 mg vaginal .WEEKLY PRN 04/03/22 06/08/24 vaginal cream (Premarin) Previous Rx's Medication Instructions Recorded verapamil 240 mg tablet,extended See Rx Instructions .Route 11/19/23 release .COMPLEX #90 tabs atorvastatin 40 mg tablet See Rx Instructions .Route 06/08/24 .COMPLEX #90 tabs duloxetine 60 mg capsule,delayed See Rx Instructions .Route 06/08/24 release .COMPLEX #90 ea hydrochlorothiazide 25 mg tablet 25 mg PO DAILY PRN edema #90 tabs 06/08/24 losartan 100 mg tablet 100 mg PO DAILY #90 tabs 06/08/24 meloxicam 7.5 mg tablet See Rx Instructions .Route 06/08/24 .COMPLEX #90 tabs nitroglycerin 0.4 mg sublingual 0.4 mg sublingual Q5M PRN chest 06/08/24 tablet (Nitrostat) pain #25 tabs omeprazole magnesium 20 mg 20 mg PO DAILY #90 tabs 06/08/24 tablet,delayed release (Prilosec OTC) Allergies Allergy/AdvReac Type Severity Reaction Status Date / Time simvastatin [From Zocor] Allergy swelling Verified 06/08/24 09:50 Review of Systems 2 Const: Denies: fever(s), chills, body aches or change in appetite Eyes: Denies: blurry vision or eye discomfort ENMT: Denies: throat pain or dental pain Card: Denies: chest pain Resp: Denies: dyspnea GI: Denies: abdominal pain, nausea, vomiting or diarrhea Musc: Denies: neck pain or back pain Skin/Breast: Denies: rash Neuro: Reports: Slurred speech present; Denies: headache(s) PFSH ED 2 PFSH: Medical History Near syncope Fibromyalgia Lower extremity edema DON inhibitor intolerance PSVT (paroxysmal supraventricular tachycardia) ASHD (arteriosclerotic heart disease) Hyperlipemia, mixed Surgical History S/P dialysis catheter insertion S/P PTCA (percutaneous transluminal coronary angioplasty) Family History Mother Cancer COLON Social History Smoking and tobacco/nicotine status: former use of tobacco/nicotine Quit status (tobacco/nicotine): has quit using Year quit tobacco: 1999 Former quit date comment: PPD x 40 yrs Second hand smoke exposure: No Alcohol intake: current Alcohol intake frequency: 0-2 Drinks per Day Substance/Drug Use: unknown Adopted: No Caregiver/support person: No Lives independently: Yes Household members: none Housing: House Marital status: / service: No Current occupational status: retired Do you think of yourself as: Straight/Heterosexual Current gender identity: Female Special prema needs: No NIH stroke score 2 NIHSS: Level Of Consciousness - 1a: 0 Level Of Consciousness Questions - 1b: Both Correct Level Of Consciousness Commands - 1c: Both Correct Best Gaze - 2: Normal Visual N[place]o - 3: No Visual Loss Facial Palsy - 4: N ormal Motor Arm Right - 5: No Drift Motor Arm Left - 5: No Drift Motor Leg Right - 6: No Drift Motor Leg Left - 6: No Drift Limb Ataxia - 7: A bsent Sensory - 8: Normal Best Language - 9: Severe Aphasia Dysarthia - 10: Normal Physical Exam 2 Const: COMMON NORMALS: healthy appearing HENMT: COMMON NORMALS: normocephalic and atraumatic HEAD & SCALP: n ormocephalic and atraumatic Eye: COMMON NORMALS: Equal, round and reactive pupils present and EOMs intact bilaterally PUPIL: Yes Equal, round and reactive pupils present Neck/C-Spine: COMMON NORMALS: full ROM and supple Chest: COMMONS NORMALS: normal inspection of the chest Resp: COMMON NORMALS: normal respiratory effort, No retractions, No use of accessory muscles and clear to auscultation bilaterally AUSCULTATION: clear to auscultation bilaterally Cardio: COMMON NORMALS: regular rate, regular rhythm and No murmurs present (Cardio) RATE: regular rate RHYTHM: regular rhythm Extremity: COMMON NORMALS: normal to inspection and full ROM Neuro: COMMON NORMALS: moves all extremities CRANIAL NERVES: Yes CN normal except as noted SPEECH: expressive aphasia GAIT: Yes Normal gait present MOTOR EXAM: 5/5 motor strength present throughout Psych: COMMON NORMALS: mental status grossly normal, Normal thought process present and cooperative THOUGHT PROCESS: Normal thought process present Skin: COMMON NORMALS: no rashes or lesions noted and no wounds GENERAL SKIN EXAM: no rashes or lesions noted Course 2 Vital Signs: Vital signs: Vital Signs Temperature 98.0 F 06/09/24 18:05 Pulse Rate 56 L 06/09/24 18:42 Respiratory Rate 13 06/09/24 18:42 Blood Pressure 135/74 06/09/24 18:42 Pulse Oximetry 96 06/09/24 18:42 Oxygen Delivery Me thod Room Air 06/09/24 18:42 MDM - Neuro Symptoms/Deficit Medical Decision Making Patient presents here with likely CVA her CTA showed no large vessel occlusion she is not a thrombectomy candidate. Patient is out of window for lytics. I did speak to hospitalist will admit at this time. Medical Records I reviewed the patient's medical records. Lab Data I reviewed the patient's lab results. 06/09/24 18:16 06/09/24 18:[address] 06/09/24 18:15 IMPRESSION: Age-indeterminate infarct in the left parietal lobe which was not present on prior imaging. ASSESSMENT: ASPECTS (Sandra Stroke Program Early CT Score) is 9. Head/Neck CTA 06/09/24 18:15 IMPRESSION: No large vessel stenosis or occlusion. IMPRESSION: 1. No stenosis or occlusion. 2. Rounded consolidation in the superior aspect of the left lower lobe. COMMENTS: Consistent with the [employer]'s Incidental Findings Committee white paper (J Am Kishor Radiol 2015): In patients aged 35 years and older with an incidental thyroid nodule equal to or greater than 1.[address], MRI or extrathyroidal US, further evaluation with dedicated thyroid US is recommended for patients with normal life expectancy and without comorbidities. For smaller nodules without suspicious features, no further evaluation or follow up is recommended. REFERENCES: NASCET CRITERIA. The degree of stenosis in the cervical segment of the internal carotid artery is based on NASCET criteria. Normal is no stenosis. Mild is less than 50% stenosis. Moderate is 50-69% stenosis. Severe is 70% to 99% stenosis. Total occlusion is no detectable patent lumen. Laboratory Results WBC 6.95 10^3/uL (3.29-11.43) 06/09/24 18:16 RBC 4.16 10^6/uL (3.85-5.65) 06/09/24 18:16 Hgb 12.10 g/dL (11.27-16.99) 06/09/24 18:16 Hct 37.9 % (36-47) 06/09/24 18:16 MCV 91.1 fl (85-98) 06/09/24 18:16 MCH 29.1 pg (27-33) 06/09/24 18:16 MCHC 31.9 g/dL (30-55) 06/09/24 18:16 RDW 15.0 % (12.1-15.1) 06/09/24 18:16 Plt Count 256 10^3/cmm (157-399) 06/09/24 18:16 MPV 10.4 fL (7.4-10.4) 06/09/24 18:16 Neut % (Auto) 60.4 % 06/09/24 18:16 Lymph % (Auto) 27.9 % 06/09/24 18:16 [place] % (Auto) 8.1 % 06/09/24 18:16 Eos % (Auto) 2.0 % 06/09/24 18:16 Baso % (Auto) 1.2 % 06/09/24 18:16 Neut # (Auto) 4.20 10^3/uL (1.8-7.7) 06/09/24 18:16 Lymph # (Auto) 1.9 10^3/uL (0.8-4.8) 06/09/24 18:16 [place] # (Auto) 0.6 10^3/uL (0.2-0.9) 06/09/24 18:16 Eos # (Auto) 0.1 10^3/uL (0.0-0.8) 06/09/24 18:16 Baso # (Auto) 0.1 10^3/uL (0.0-0.1) 06/09/24 18:16 Nucleated RBC % (auto) 0 % 06/09/24 18:16 Nucleated RBCs # 0.0 /100WBC 06/09/24 18:16 PT 13.00 SECONDS (12.1-14.9) 06/09/24 18:16 INR 0.96 (0.8-1.2) 06/09/24 18:16 APTT 27.2 SECONDS (23.9-36.7) 06/09/24 18:16 Sodium 138 mmol/L (136-145) 06/09/24 18:16 Potassium 4.0 mmol/L (3.5-5.1) 06/09/24 18:16 Chloride 99 mmol/L (98-107) 06/09/24 18:16 Carbon Dioxide 28 mmol/L (22-29) 06/09/24 18:16 Anion Gap 15.0 (5-19) 06/09/24 18:16 BUN 21 mg/dL (8-23) 06/09/24 18:16 Creatinine 1.1 mg/dL (0.5-0.9) H 06/09/24 18:16 GFR Calculation Not Reportable 06/09/24 18:16 Glucose 102 mg/dL (65-115) 06/09/24 18:16 POC Glucose 99 mg/dL (70-110) 06/09/24 18:16 Calculated Osmolality 289 mOsm/kg (285-295) 06/09/24 18:16 Calcium 9.3 mg/dL (8.5-10.5) 06/09/24 18:16 Total Bilirubin 0.5 mg/dL (0.15-1.2) 06/09/24 18:16 AST 24 U/L (0-32) 06/09/24 18:16 ALT 15 U/L (0-33) 06/09/24 18:16 Alkaline Phosphatase 96 U/L (35-105) 06/09/24 18:16 Total Protein 6.4 g/dL (6.6-8.7) L 06/09/24 18:16 Albumin 4.2 g/dL (3.5-5.2) 06/09/24 18:16 Globulin 2.2 g/dL (1.3-4.6) 06/09/24 18:16 Amorphous Sediment Not Reportable 06/09/24 18:57 All radiology interpretation(s) finalized by discharge EKG Data EKG 1: I personally reviewed and interpreted this EKG as follows: EKG interpretation date: 06/09/24 EKG interpretation time: 18:36 Interpretation: sinus kanika hr [address] elevation qrs 138 qtc 491 Discharge Plan Discharge Patient Disposition: Admitted As Inpatient Clinical Impression: Cerebrovascular accident Condition: Stable Prescriptions: No Action aspirin [Aspir-81] 81 mg tablet,delayed release (DR/EC) 162 mg PO DAILY Premarin 0.625 mg/gram cream 0.625 mg VAGINAL .WEEKLY PRN Rx Instructions: off 5 days; repeat cycle multivitamin Tablet 1 tab PO DAILY verapamil 240 mg tablet extended release See Rx Instructions .ROUTE .COMPLEX Qty: 90 1RF Dose Instruction: TAKE 1 TABLET BY MOUTH ONCE DAILY . APPOINTMENT REQUIRED FOR FUTURE REFILLS Rx Instructions: TAKE 1 TABLET BY MOUTH ONCE DAILY . APPOINTMENT REQUIRED FOR FUTURE REFILLS atorvastatin 40 mg tablet See Rx Instructions .ROUTE .COMPLEX Qty: 90 5RF Dose Instruction: TAKE 1 TABLET BY MOUTH ONCE DAILY . APPOINTMENT REQUIRED FOR FUTURE REFILLS Rx Instructions: TAKE 1 TABLET BY MOUTH ONCE DAILY . APPOINTMENT REQUIRED FOR FUTURE REFILLS duloxetine 60 mg capsule,delayed release(DR/EC) See Rx Instructions .ROUTE .COMPLEX Qty: 90 1RF Dose Instruction: Take 1 capsule by mouth once daily Rx Instructions: Take 1 capsule by mouth once daily hydrochlorothiazide 25 mg tablet 25 mg PO DAILY PRN (Reason: edema) Qty: 90 1RF losartan 100 mg tablet 100 mg PO DAILY Qty: 90 3RF meloxicam 7.5 mg tablet See Rx Instructions .ROUTE .COMPLEX Qty: 90 1RF Dose Instruction: TAKE 1 TABLET BY MOUTH ONCE DAILY . APPOINTMENT REQUIRED FOR FUTURE REFILLS Rx Instructions: TAKE 1 TABLET BY MOUTH ONCE DAILY . APPOINTMENT REQUIRED FOR FUTURE REFILLS omeprazole magnesium [Prilosec OTC] 20 mg tablet,delayed release (DR/EC) 20 mg PO DAILY Qty: 90 2RF nitroglycerin [Nitrostat] 0.4 mg tablet, sublingual 0.4 mg SUBLINGUAL Q5M PRN (Reason: chest pain) Qty: 25 6RF Rx Instructions: do not exceed 3 doses per episode Referrals: Daya Bowles MD [Primary Care Provider] - Coding Level of Care Code ED [employer] for David Saeed
[2024-06-09 18:19] LABS: Glucose Point of Care 99 mg/dL (70-110)
--- NOTE | 2024-06-09 18:19 | PC.NURSE ---
POC GLUCOSE 99.
[2024-06-09] MEDS: iohexol 350 mg/mL 500 mL Btl (per mL) IV (18:30)
--- NOTE | 2024-06-09 18:36 | ECG_ITS ---
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 Measurements Intervals [place] Rate: 59 P: 79 PA: 173 QRS: 56 QRSD: 138 T: 42 QT: 492 QTc: 489 Interpretive Statements SINUS BRADYCARDIA INTRAVENTRICULAR CONDUCTION DELAY [130+ ms QRS DURATION] Compared to ECG 12/25/2022 19:30:03 Intraventricular conduction delay now present Right bundle-branch block no longer present Electronically Signed On 06-10-2024 9:02:52 CDT by Nuris Holden M.D. [id number]
[2024-06-09 18:50] LABS: INR 0.96 (0.8-1.2); Partial Thromboplastin Time 27.2 SECONDS (23.9-36.7)
[2024-06-09 18:53] LABS: Basophils # 0.1 10^3/uL (0.0-0.1); Basophils % 1.2 %; Eosinophils # 0.1 10^3/uL (0.0-0.8); Hematocrit 37.9 % (36-47); Lymphocytes # 1.9 10^3/uL (0.8-4.8); Lymphocytes % 27.9 %; Mean Corpuscular HGB Conc 31.9 g/dL (30-55); Mean Corpuscular Hemoglobin 29.1 pg (27-33); Mean Corpuscular Volume 91.1 fl (85-98); Mean Platelet Volume 10.4 fL (7.4-10.4); Monocytes # 0.6 10^3/uL (0.2-0.9); Monocytes % 8.1 %; Neutrophils % 60.4 %; Nucleated Red Blood Cells % 0 %; Platelet Count 256 10^3/cmm (157-399); Red Blood Count 4.16 10^6/uL (3.85-5.65); White Blood Count 6.95 10^3/uL (3.29-11.43)
[2024-06-09 19:02] LABS: Alanine Aminotransferase 15 U/L (0-33); Albumin Level 4.2 g/dL (3.5-5.2); Alkaline Phosphatase 96 U/L (35-105); Aspartate Amino Transferase 24 U/L (0-32); Blood Urea Nitrogen 21 mg/dL (8-23); Calcium 9.3 mg/dL (8.5-10.5); Carbon Dioxide 28 mmol/L (22-29); Chloride 99 mmol/L (98-107); Creatinine Clr Calc Pharmacy 32.6417; Globulin 2.2 g/dL (1.3-4.6); Glucose 102 mg/dL (65-115); Osmolality Calculated 289 mOsm/kg (285-295); Sodium 138 mmol/L (136-145); Total Bilirubin 0.5 mg/dL (0.15-1.2); Total Protein 6.4 g/dL (6.6-8.7)
[2024-06-09 19:03] LABS: Charge for UA Resulting for Rev
[2024-06-09 19:09] LABS: Bilirubin Urine Negative (Negative); Blood Urine Negative (Negative); Glucose Urine UA Negative (Normal); Ketones Urine Negative (Negative); Leukocyte Esterase Urine 1+ (Negative); Nitrate Urine Negative (Negative); Protein Urine Negative (Negative); Specific Gravity, Urine 1.023 (1.005-1.030); Urine Appearance Clear (CLEAR); Urine Color Yellow (Yellow); pH Urine 7.5 (5-7)
[2024-06-09 19:11] LABS: Bacteria Urine None Seen /hpf; Hyaline Casts Urine 0.81 /lpf; RBC Urine 0-2 /hpf (0-2); Squamous Epithelial Cell Urine 0-5 /hpf (0-5)
[2024-06-09 19:17] LABS: Amphetamines Screen Urine Negative (Negative); Barbiturates Screen Urine Negative (Negative); Benzodiazepines Screen Urine Negative (Negative); Cocaine Screen Urine Negative (Negative); Opiate Screen Urine Negative (Negative); PCP Screen Urine Negative (Negative); THC Screen Urine Negative (Negative)
[2024-06-09 19:24] LABS: Add Urine Culture? No
--- NOTE | 2024-06-09 19:29 | P.HP_ITS ---
Providers/Chief Complaint 2 Primary Care Provider: Daya Bowles MD Chief Complaint: trouble remembering things and talking History of Present Illness Valeria Knight is a 88 year old female with a past medical history significant for GERD, fibromyalgia, hypertension, paroxysmal SVT, coronary artery disease, hyperlipidemia, and multiple other comorbidities who presents emergency department with altered mental status. Upon assessment, patient is found to have aphasia. Her son-in-law is bedside and helps provide collateral information. Her last known well would have been Friday night. She reportedly woke up with symptoms on Friday at 9 AM. She states that she felt very off and was slightly confused. Her speech has been having issues since this morning. She is able to mostly form words but not be able to say what she wants. She is also been slightly confused at times. Her son says the symptoms have waxed and waned but been present all day. The patient denies any changes in sensation or strength. She actually took her dog for a walk twice today. The son reports a similar episode about a year ago where she had transient garbled speech for about 10 minutes which at the time was suspicious for transient ischemic attack. The patient denies any fevers, chills, nausea or emesis. Denies any facial droop or dysphagia. Denies other alleviating or aggravating factors. Review of Systems 2 Narrative: A complete review of systems was obtained and is negative except as stated in HPI. Medications/Allergies Home Medications Medication Instructions Recorded Confirmed Last Taken Type aspirin 81 mg tablet,delayed 162 mg PO DAILY 09/27/21 06/08/24 Unknown History release (Aspir-) multivitamin 1 tab PO DAILY 09/27/21 06/08/24 Unknown History conjugated estrogens 0.625 mg/gram 0.625 mg vaginal .WEEKLY PRN 04/03/22 06/08/24 Unknown History vaginal cream (Premarin) verapamil 240 mg tablet,extended See Rx Instructions .Route 11/19/23 06/08/24 Unknown Rx release .COMPLEX #90 tabs atorvastatin 40 mg tablet See Rx Instructions .Route 06/08/24 06/08/24 Unknown Rx .COMPLEX #90 tabs duloxetine 60 mg capsule,delayed See Rx Instructions .Route 06/08/24 06/08/24 Unknown Rx release .COMPLEX #90 ea hydrochlorothiazide 25 mg tablet 25 mg PO DAILY PRN edema #90 tabs 06/08/24 06/08/24 Unknown Rx losartan 100 mg tablet 100 mg PO DAILY #90 tabs 06/08/24 06/08/24 Unknown Rx meloxicam 7.5 mg tablet See Rx Instructions .Route 06/08/24 06/08/24 Unknown Rx .COMPLEX #90 tabs nitroglycerin 0.4 mg sublingual 0.4 mg sublingual Q5M PRN chest 06/08/24 06/08/24 Unknown Rx tablet (Nitrostat) pain #25 tabs omeprazole magnesium 20 mg 20 mg PO DAILY #90 tabs 06/08/24 06/08/24 Unknown Rx tablet,delayed release (Prilosec OTC) Allergies Allergy/AdvReac Type Severity Reaction Status Date / Time simvastatin [From Zocor] Allergy swelling Verified 06/08/24 09:50 PFSH Acute 2 PFSH: Medical History Near syncope Fibromyalgia Lower extremity edema DON inhibitor intolerance PSVT (paroxysmal supraventricular tachycardia) ASHD (arteriosclerotic heart disease) Hyperlipemia, mixed Surgical History S/P dialysis catheter insertion S/P PTCA (percutaneous transluminal coronary angioplasty) Family History Mother Cancer COLON Social History Smoking and tobacco/nicotine status: former use of tobacco/nicotine Quit status (tobacco/nicotine): has quit using Year quit tobacco: 1999 Former quit date comment: PPD x 40 yrs Second hand smoke exposure: No Alcohol intake: current Alcohol intake frequency: 0-2 Drinks per Day Substance/Drug Use: unknown Adopted: No Caregiver/support person: No Lives independently: Yes Household members: none Housing: House Marital status: / service: No Current occupational status: retired Do you think of yourself as: Straight/Heterosexual Current gender identity: Female Special prema needs: No Vitals/I&O/Wt Last Vital Signs Temp 98.0 F 06/09/24 18:05 Pulse 56 L 06/09/24 18:42 Resp 13 06/09/24 18:42 BP 135/74 06/09/24 18:42 Pulse Ox 96 06/09/24 18:42 O2 Del Method Room Air 06/09/24 18:42 Weight last 48 hrs Weight 64.864 kg Physical Exam 2 Narrative: General: Patient is awake. Head: Normocephalic. Atraumatic. EOM intact. No facial droop. Neck: No JVD. Cardiovascular: RRR. No gallops. No murmurs. Lungs: Clear to auscultation, no use of accessory muscles, no crackles or wheezes. Skin: No jaundice. No rashes. Abdomen: Normal bowel sounds, abdomen soft and nontender. Genito Urinary: Genital exam not performed since complaints not related. Rectal: Rectal exam not performed since no symptoms indicated blood loss. Extremities: No cyanosis or clubbing. Musculoskeletal: No swollen or erythematous joints. Neurological: No facial droop. Vision grossly intact. Extraocular movements intact. Face is symmetric. Sensation intact. Hearing grossly intact. She follows commands. Speech comprehension seems to vary. Mild component of word salad. Moves all 4 extremities. Strength is equal and 5 out of 5 in all extremities. Sensation grossly intact. Data 06/09/24 18:16 06/09/24 18:16 A&P Assessment and plan (1) Stroke-like symptoms: Patient presents with strokelike symptoms with aphasia Aphasia seems mixed with components of receptive and expressive CT head with age-indeterminate infarct in the left parietal lobe CTA head/neck negative for large vessel occlusion Head MRI without contrast ordered Continuous telemetry monitoring Serial neurologic exams Patient received loading dose of aspirin in ED, continue 81 mg daily Start Plavix load followed by 71 mg daily Continue high intensity statin Allow permissive hypertension A1c and lipid panel in a.m. PT/OT/ST (2) Hypertension: Allow permissive hypertension Hold HCTZ, losartan, and verapamil Monitor blood pressure closely Qualifiers: Hypertension type: essential hypertension Qualified Code(s): I10 - Essential (primary) hypertension (3) GERD (gastroesophageal reflux disease): Continue PPI (4) Fibromyalgia: Continue Cymbalta (5) Hyperlipemia, mixed: Continue high intensity statin (6) ASHD (arteriosclerotic heart disease): Continue aspirin and statin Plan DVT prophylaxis: Lovenox Attestations 2 Medical Necessity Statement*: Patient presents with strokelike symptoms with expected hospitalization not to cross 2 midnights for further stroke workup and therapy evaluation. Coding Level of Care Code Acute Code for Chg Fwd Diagnoses Stroke-like symptoms R29.90 Essential hypertension I10 Hypertension type: essential hypertension GERD (gastroesophageal reflux disease) K21.9 Fibromyalgia M79.7 Hyperlipemia, mixed E78.2 ASHD (arteriosclerotic heart disease) I25.10
[2024-06-09] MEDS: aspirin 325 mg Tablet PO (19:34)
[2024-06-09] MEDS: clopidogrel 300 mg Tablet PO (22:05)
[2024-06-09] MEDS: atorvastatin 40 mg Tablet PO (22:05)
[2024-06-09] MEDS: enoxaparin 40 mg/0.4 mL Syringe SUBCUT (22:06)
[2024-06-10] VITALS (9 sets, daily range): BP systolic 112–184; BP diastolic 59–89; PULSE 67–85; RESP 17–22; TEMP 36.6–36.8; O2SAT 90–95
[2024-06-10 04:35] LABS: Chol HDL Ratio 2.16 mg/dL (0.0-4.40); Cholesterol 160 mg/dL (0-200); HDL Cholesterol 74 mg/dL (60-100); LDL Cholesterol Calculated 67 mg/dL (50-129); LDL HDL Ratio 0.91 RATIO (0.00-3.22); Triglycerides 96 mg/dL (0-150)
[2024-06-10 04:56] LABS: Estmated Average Glucose 108; Hemoglobin A1C 5.4 % (4.0-6.0)
[2024-06-10] MEDS: aspirin 81 mg EC Tablet PO (08:54)
[2024-06-10] MEDS: duloxetine 60 mg Capsule PO (08:54)
[2024-06-10] MEDS: clopidogrel 75 mg Tablet PO (08:54)
[2024-06-10] MEDS: pantoprazole DR 40 mg Tablet PO (08:55)
--- NOTE | 2024-06-10 09:05 | PC.PHAR ---
Pt could not reach her food tray so I rolled it over her bed so she could eat. Pt, then struggled to remember all her meds and doesn't remember when last taken. Most fill dates are current except Atorvastatin 40mg-last fill 12/30/23 90ds.
--- NOTE | 2024-06-10 09:30 | MR_ITS ---
WS: [id number] MRI BRAIN WITHOUT CONTRAST HISTORY: Aphasia COMPARISON: Noncontrast CT head TECHNIQUE: Diffusion imaging, multiplanar T1, T2 and FLAIR imaging obtained. Acute diffusion abnormalities are noted within the LEFT brain. There is a large area of ischemia invo lving the LEFT occipital and temporal lobe. There are a few additional scattered diffusion abnormalit ies within the cortex of the LEFT frontal and parietal lobe. There are foci of hemosiderin consistent with blood products in the larger LEFT temporo-occipital infarct. Otherwise there is extensive periventricular white matter disease and subcortical white matter diseas e. Prior ischemic changes bilaterally in the cerebellum. No additional areas of hemorrhage. Ventricles and extra-axial spaces are prominent on the basis of atrophy. No inferior displacement of cerebellar tonsils. The sella turcica and pituitary gland are unremarkabl e. Dural venous sinuses and [place] demonstrate no abnormality on this unenhanced studies. Paranasal sinuses: Clear. Mastoid air cells: Normal. Calvarium and scalp: Intact. MR/MR head wo con* [id number] IMPRESSION: 1. 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 Small hemor rhagic component within the acute infarct. There are additional tiny acute ramakrishna ical infarcts in the LEFT frontal and parietal frontal lobes. 2. Extensive bilateral cerebral and cerebellar small vessel ischemic disease. 3. Moderate atrophy.
--- NOTE | 2024-06-10 11:51 | PC.NURSE ---
Jones BP is 184/89. Notified Dr. Tineo.
--- NOTE | 2024-06-10 12:52 | USCV_ITS ---
Valeria Kinght Age: 88 Gender: F : 1935 Exam Date: 06/10/2024 14:36 Ordering Phys: Lauro Tineo MD Technologist: Exam Location: [facility] – [place] Indication: cva BP: 143 / 74 HR: 313 Rhythm: Sinus Technical Quality: Adequate MEASUREMENTS (Male / Female) Normal Values 2D ECHO LV Diastolic Diameter PLAX 5.3 cm 4.2 - 5.9 / 3.9 - 5.3 cm IVS Diastolic Thickness 1.3 cm 0.6 - 1.0 / 0.6 - 0.9 cm IVS Systolic Thickness 1.7 cm LVPW Diastolic Thickness 1.3 cm 0.6 - 1.0 / 0.6 - 0.9 cm LVPW Systolic Thickness 1.6 cm LVOT Diameter 2.0 cm LV Ejection Fraction 2D Teich 68.6 % LV Ejection Fraction MOD 4C 71.8 % LV Ejection Fraction MOD 2C 73.5 % LV Ejection Fraction 2C AL 73.5 % LA Diameter 3.5 cm RA Systolic Volume 4C AL 30.3 ml RA Systolic Volume 4C MOD 29.4 ml LA Sys Volume AL 57.3 cm cubed LA Sys Volume Index AL 27.1 cm cubed/m squared Aorta at Sinotubular Diameter 3.4 cm M-MODE LA Ao Ratio MM 1.1 MV E Point Septal Separation 1.3 cm AV Cusp Separation MM 2.2 cm DOPPLER AV Peak Velocity 190.2 cm/s LVOT Peak Velocity 96.0 cm/s AV Area Cont Eq vti 6.3 cm squared AV Area Cont Eq pk 1.6 cm squared MV Peak Velocity 104.0 cm/s MV Area PHT 5.4 cm squared Mitral E to A Ratio 1.0 TV Peak Velocity 217.0 cm/s TR Peak Velocity 309.0 cm/s TR Peak Gradient 38.2 mmHg TV Peak E Velocity 73.0 cm/s Right Atrial Pressure 3.0 mmHg Pulmonary Artery Systolic Pressu 41.2 mmHg PV Peak Velocity 114.0 cm/s FINDINGS Left Ventricle Normal left ventricular size and systolic function, EF 73%..mild left ventricular hypertrophy. No regional wall motion abnormalities. Grade I/IV diastolic dysfunction (abnormal relaxation filling pattern), normal to mildly elevated filling pressures. Saline contrast injection revealed no evidence of any right left shunt Right Ventricle The right ventricle is normal in size and function. Right Atrium The right atrium is normal in size. Left Atrium Mildly increased left atrial size. Mitral Valve Moderate mitral annular calcification. Trace mitral valve regurgitation. Aortic Valve [id number] aortic valve regurgitation. Thickened aortic valve. Tricuspid Valve Trace to mild tricuspid valve regurgitation. Pulmonic Valve No gross abnormalities noted Pericardium Normal pericardium without effusion. Aorta Normal ascending aorta dimension. IVC Inferior vena cava not visualized. CONCLUSIONS Normal left ventricular size and systolic function, EF 73%..mild left ventricular hypertrophy. No regional wall motion abnormalities. Grade I/IV diastolic dysfunction (abnormal relaxation filling pattern), normal to mildly elevated filling pressures. Saline contrast injection revealed no evidence of any right to left shunt. Mildly increased left atrial size. Moderate mitral annular calcification. Trace mitral valve regurgitation. [id number] aortic valve regurgitation. Thickened aortic valve. Trace to mild tricuspid valve regurgitation. Estimated pulmonary artery peak systolic pressure 41 mmHg-mild pulmonary hypertension There are no intracardiac masses. There is no pericardial effusion. Compared to the study from 06/21/2021, there may not be a significant change Dr Nuris Holden MD [facility] (Electronically Signed) Final Date: 11 June 2024 00:41 S
--- NOTE | 2024-06-10 13:05 | P.PN_ITS ---
Subjective 2 Subjective: Subjectively she feels that her speech has improved significantly. Denies any pain or discomfort. Asks about going home. She does not remember her medications. Vitals/I&O/Wt Last Vital Signs Temp 98.0 F 06/10/24 08:05 Pulse 85 06/10/24 08:05 Resp 18 06/10/24 08:05 BP 184/89 06/10/24 11:53 Pulse Ox 92 06/10/24 08:05 O2 Del Method Room Air 06/10/24 08:05 06/09/24 06/10/24 06/10/24 22:59 06:59 14:59 Intake Total 250 / 250 360 / 360 Output Total 1000 / 1000 Balance -1000 / -1000 250 / -750 360 / 360 Weight last 48 hrs Weight 65.317 kg Weight 64.183 kg Weight 112.037 kg Weight 64.864 kg Weight 64.864 kg Physical Exam 2 Narrative: She is moderately hard of hearing, and this makes it somewhat more difficult with regards to having mild difficulty with following directions. Const: COMMON NORMALS: patient oriented x3 and alert GENERAL APPEARANCE: c ooperative ORIENTATION/CONSCIOUSNESS: Yes awake HENMT: COMMON NORMALS: oropharynx normal Neck/C-Spine: COMMON NORMALS: no JVD Resp: COMMON NORMALS: normal respiratory effort and clear to auscultation bilaterally AUSCULTATION: clear to auscultation bilaterally Cardio: COMMON NORMALS: no JVD, regular rhythm, S1 normal heart sound present, S2 normal heart sound present and No murmurs present (Cardio) RHYTHM: regular rhythm HEART SOUNDS: S1 normal heart sound present and S2 normal heart sound present GI: COMMON NORMALS: Normal to inspection, nondistended, normoactive bowel sounds present, Soft to palpation and non-tender PALPATION: Yes Soft to palpation Extremity: COMMON NORMALS: no joint enlargement and no pedal edema Neuro: COMMON NORMALS: patient oriented x3 and moves all extremities S ENSORIUM/ORIENTATION: Yes alert OTHER: Mild difficulty following directions as above. Otherwise she is awake and alert, interactive. I do not detect any facial droop. She does not have difficulty tracking horizontally. No difficulty with FNF. Mild aphasia is still present. Had some difficulty with visual cabrera, inconsistent result, initially unable to see movement in right visual field, but on repeat does see it without issue and without bilateral visual extinction. No upper or lower extremity drift. Sensory exam symmetrical, no sensory extinction. Skin: COMMON NORMALS: no rashes or lesions noted GENERAL SKIN EXAM: no rashes or lesions noted Data 06/09/24 18:16 06/09/24 18:16 A&P Assessment and plan (1) Stroke-like symptoms: Reviewed vitals, CT head, CT angiogram head and neck, A1c, lipid profile, INR, CBC, CMP, TSH, UA, UDS. She underwent MRI, reviewed MRI, discussed with neurologist and patient and family. MRI with report of large left side temporoparietal stroke, but on discussion with neurologist who reviewed the imaging stroke is medium sized, with noted small hemorrhagic transformation. Recommendation to continue aspirin, and Plavix for 21 days. Monitor for any changes with risk of bleeding with aspirin and Plavix. Continue statin. Gradually resume antihypertensives starting with verapamil. Hold off about a week before resuming others sequentially. Discussed with her daughter. Obtaining echocardiogram bubble study. Additionally per discussion with patient's daughter she states her grandmother should not be by herself at home. Discussed additional possibility of fluctuating clinical course, possible worsening with ismael-infarct edema subsequently possibly additional improvement. They know to seek medical attention in case of any worsening or new concerning symptoms given small hemorrhagic transformation. SCD DVT prophylaxis. Hold Lovenox. Decrease duloxetine dose. Discussed with case aide. (2) Hypertension: Allow permissive hypertension Hold HCTZ, losartan, and verapamil Monitor blood pressure closely Qualifiers: Hypertension type: essential hypertension Qualified Code(s): I10 - Essential (primary) hypertension (3) GERD (gastroesophageal reflux disease): Continue PPI (4) Fibromyalgia: De-escalate duloxetine. 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 Diagnoses Stroke-like symptoms R29.90 Essential hypertension I10 Hypertension type: essential hypertension GERD (gastroesophageal reflux disease) K21.9 Fibromyalgia M79.7 Hyperlipemia, mixed E78.2 ASHD (arteriosclerotic heart disease) I25.10
[2024-06-10] MEDS: atorvastatin 40 mg Tablet PO (21:02)
[2024-06-11 04:00] VITALS: BP 163/73; PULSE 87; RESP 12; TEMP 36.6; O2SAT 88
[2024-06-11 05:42] VITALS: PULSE 70
[2024-06-11 08:00] VITALS: BP 156/91; PULSE 87; TEMP 36.7; O2SAT 96
[2024-06-11] MEDS: clopidogrel 75 mg Tablet PO (08:32)
[2024-06-11] MEDS: pantoprazole DR 40 mg Tablet PO (08:32)
[2024-06-11] MEDS: duloxetine 30 mg Capsule PO (08:32)
[2024-06-11] MEDS: verapamil ER 240 mg Tablet 120 MG PO (08:32)
[2024-06-11] MEDS: aspirin 81 mg EC Tablet PO (08:32)
[2024-06-11 12:06] VITALS: BP 180/80; PULSE 76; RESP 94; TEMP 36.8
--- NOTE | 2024-06-11 12:12 | PM.DCS ---
Discharge Providers Date of Admission: 06/09/24 20:16 Date of Discharge: June 11, 2024 Attending Provider at Admission: Mauro Meza MD Attending Provider at Discharge: Lauro Tineo Primary Care Provider: Daya Bowles MD Diagnoses at Discharge Discharge Diagnosis (1) Stroke-like symptoms: Status: Acute (2) Hypertension: Status: Acute Qualifiers: Hypertension type: essential hypertension Qualified Code(s): I10 - Essential (primary) hypertension (3) GERD (gastroesophageal reflux disease): Status: Acute (4) Fibromyalgia: Status: Acute (5) Hyperlipemia, mixed: Status: Acute (6) ASHD (arteriosclerotic heart disease): Status: Chronic Reason for Visit Reason for Visit: trouble remembering things and talking Brief History: Valeria Kinght is a 88 year old female with a past medical history significant for GERD, fibromyalgia, hypertension, paroxysmal SVT, coronary artery disease, hyperlipidemia, and multiple other comorbidities who presents emergency department with altered mental status. Upon assessment, patient is found to have aphasia. Her son-in-law is bedside and helps provide collateral information. Her last known well would have been Friday night. She reportedly woke up with symptoms on Friday at 9 AM. She states that she felt very off and was slightly confused. Her speech has been having issues since this morning. She is able to mostly form words but not be able to say what she wants. She is also been slightly confused at times. Her son says the symptoms have waxed and waned but been present all day. The patient denies any changes in sensation or strength. She actually took her dog for a walk twice today. The son reports a similar episode about a year ago where she had transient garbled speech for about 10 minutes which at the time was suspicious for transient ischemic attack. The patient denies any fevers, chills, nausea or emesis. Denies any facial droop or dysphagia. Denies other alleviating or aggravating factors. Hospital Course Hospital Course Had MRI was read as showing large acute infarct in left temporoparietal region with hemosiderin, small hemorrhagic component within acute infarct, additional tiny acute cortical infarct in left frontal and parietal frontal lobes. Extensive bilateral cerebral and cerebellar small vessel ischemic disease. No atrial fibrillation noted during hospitalization. Echocardiogram without shunt. She was held off antihypertensives initially. Started on aspirin, Plavix. Per discussion with neurology continue aspirin, continue Plavix for 21 days. Continue statin. Continue to optimize cardiovascular risk factors. Resume antihypertensives in stepwise fashion. She is resuming verapamil first, he is asked to monitor blood pressures, then in about a week resume losartan, then lastly in another week or so resume hydrochlorothiazide if blood pressure still elevated. Avoid dehydration. She is asked to discontinue meloxicam due to increased risk of heart attack and stroke. A1c was normal. Duloxetine dose was de-escalated to 30 mg temporarily to reduce risk of bleeding, avoiding rapid discontinuation to avoid risk of seizure with parietotemporal stroke. Echocardiogram otherwise with grade 1 diastolic dysfunction, trace MVR, mild to moderate AVR, mild TVR. Estimated pulmonary artery systolic pressure peak 41 mmHg. Mild pulmonary hypertension. Per discussion with neurology, follow-up if needed after follow-up with PCP. Her symptoms for the most part significantly improved with very good improvement in aphasia but with residual mild aphasia still present. She otherwise did well with PT and OT. She is referred for follow-up with speech therapy. She is asked not to drive at current time until assessment by PCP and reassessment by DMV. Per discussion with family she will have family checking in on her more frequently with one of the family members possibly moving in with her. CT angiogram head and neck with incidentally noted rounded consolidation in left lower lobe, she was otherwise without any respiratory symptoms, without leukocytosis, fever or other symptoms to suggest pneumonia. Started on incentive spirometer and instructed to continue after discharge. Please follow-up for resolution. Physical Exam Narrative: She is moderately hard of hearing. Const: COMMON NORMALS: patient oriented x3 and alert GENERAL APPEARANCE: cooperative ORIENTATION/CONSCIOUSNESS: Yes awake HENMT: COMMON NORMALS: oropharynx normal Neck/C-Spine: COMMON NORMALS: no JVD Resp: COMMON NORMALS: normal respiratory effort and clear to auscultation bilaterally AUSCULTATION: clear to auscultation bilaterally Cardio: COMMON NORMALS: no JVD, regular rhythm, S1 normal heart sound present, S2 normal heart sound present and No murmurs present (Cardio) RHYTHM: regular rhythm HEART SOUNDS: S1 normal heart sound present and S2 normal heart sound present GI: COMMON NORMALS: Normal to inspection, nondistended, normoactive bowel sounds present, Soft to palpation and non-tender PALPATION: Yes Soft to palpation Extremity: COMMON NORMALS: no joint enlargement and no pedal edema Neuro: COMMON NORMALS: patient oriented x3 and moves all extremities SENSORIUM/ORIENTATION: Yes alert OTHER: Mild difficulty following directions as above. Otherwise she is awake and alert, interactive. I do not detect any facial droop. Mild aphasia is still present. No visual field deficit. Skin: COMMON NORMALS: no rashes or lesions noted GENERAL SKIN EXAM: no rashes or lesions noted Discharge Data Studies Completed and Pending Completed Studies During Hospitalization Category Date Time Status CT angio headneck* [id number] Stat Cat Scan 06/09/24 18:[address] head thrombolytic [id number] Stat Cat Scan 06/09/24 18:15 Completed XR chest 1V portable [id number] Stat Exams 06/09/24 18:15 Completed MR head wo con* [id number] Stat MRI 06/10/24 09:30 Completed CV. echo w/w bubble cont [id number] Routine Ultrasound 06/10/24 12:52 Completed Radiology Impressions Chest X-Ray 06/09/24 18:15 IMPRESSION: No acute findings. Head CT 06/09/24 18:15 IMPRESSION: Age-indeterminate infarct in the left parietal lobe which was not present on prior imaging. ASSESSMENT: ASPECTS ([place] Stroke Program Early CT Score) is 9. Head/Neck CTA 06/09/24 18:15 IMPRESSION: No large vessel stenosis or occlusion. IMPRESSION: 1. No stenosis or occlusion. 2. Rounded consolidation in the superior aspect of the left lower lobe. COMMENTS: Consistent with the [employer]'s Incidental Findings Committee white paper (J [employer] Kishor Radiol 2015): In patients aged 35 years and older with an incidental thyroid nodule equal to or greater than 1.[address], MRI or extrathyroidal US, further evaluation with dedicated thyroid US is recommended for patients with normal life expectancy and without comorbidities. For smaller nodules without suspicious features, no further evaluation or follow up is recommended. REFERENCES: NASCET CRITERIA. The degree of stenosis in the cervical segment of the internal carotid artery is based on NASCET criteria. Normal is no stenosis. Mild is less than 50% stenosis. Moderate is 50-69% stenosis. Severe is 70% to 99% stenosis. Total occlusion is no detectable patent lumen. Head MRI 06/10/24 09:30 IMPRESSION: 1. 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 Small hemorrhagic component within the acute infarct. There are additional tiny acute cortical infarcts in the LEFT frontal and parietal frontal lobes. 2. Extensive bilateral cerebral and cerebellar small vessel ischemic disease. 3. Moderate atrophy. Laboratory Results WBC 6.95 10^3/uL (3.29-11.43) 06/09/24 18:16 RBC 4.16 10^6/uL (3.85-5.65) 06/09/24 18:16 Hgb 12.10 g/dL (11.27-16.99) 06/09/24 18:16 Hct 37.9 % (36-47) 06/09/24 18:16 MCV 91.1 fl (85-98) 06/09/24 18:16 MCH 29.1 pg (27-33) 06/09/24 18:16 MCHC 31.9 g/dL (30-55) 06/09/24 18:16 RDW 15.0 % (12.1-15.1) 06/09/24 18:16 Plt Count 256 10^3/cmm (157-399) 06/09/24 18:16 MPV 10.4 fL (7.4-10.4) 06/09/24 18:16 Neut % (Auto) 60.4 % 06/09/24 18:16 Lymph % (Auto) 27.9 % 06/09/24 18:16 [place] % (Auto) 8.1 % 06/09/24 18:16 Eos % (Auto) 2.0 % 06/09/24 18:16 Baso % (Auto) 1.2 % 06/09/24 18:16 Neut # (Auto) 4.20 10^3/uL (1.8-7.7) 06/09/24 18:16 Lymph # (Auto) 1.9 10^3/uL (0.8-4.8) 06/09/24 18:16 [place] # (Auto) 0.6 10^3/uL (0.2-0.9) 06/09/24 18:16 Eos # (Auto) 0.1 10^3/uL (0.0-0.8) 06/09/24 18:16 Baso # (Auto) 0.1 10^3/uL (0.0-0.1) 06/09/24 18:16 Nucleated RBC % (auto) 0 % 06/09/24 18:16 Nucleated RBCs # 0.0 /100WBC 06/09/24 18:16 PT 13.00 SECONDS (12.1-14.9) 06/09/24 18:16 INR 0.96 (0.8-1.2) 06/09/24 18:16 APTT 27.2 SECONDS (23.9-36.7) 06/09/24 18:16 Sodium 138 mmol/L (136-145) 06/09/24 18:16 Potassium 4.0 mmol/L (3.5-5.1) 06/09/24 18:16 Chloride 99 mmol/L (98-107) 06/09/24 18:16 Carbon Dioxide 28 mmol/L (22-29) 06/09/24 18:16 Anion Gap 15.0 (5-19) 06/09/24 18:16 BUN 21 mg/dL (8-23) 06/09/24 18:16 Creatinine 1.1 mg/dL (0.5-0.9) H 06/09/24 18:16 GFR Calculation Not Reportable 06/09/24 18:16 Glucose 102 mg/dL (65-115) 06/09/24 18:16 POC Glucose 99 mg/dL (70-110) 06/09/24 18:16 Estimat Average Glucose 108 06/10/24 04:03 Hemoglobin A1c 5.4 % (4.0-6.0) 06/10/24 04:03 Calculated Osmolality 289 mOsm/kg (285-295) 06/09/24 18:16 Calcium 9.3 mg/dL (8.5-10.5) 06/09/24 18:16 Total Bilirubin 0.5 mg/dL (0.15-1.2) 06/09/24 18:16 AST 24 U/L (0-32) 06/09/24 18:16 ALT 15 U/L (0-33) 06/09/24 18:16 Alkaline Phosphatase 96 U/L (35-105) 06/09/24 18:16 Total Protein 6.4 g/dL (6.6-8.7) L 06/09/24 18:16 Albumin 4.2 g/dL (3.5-5.2) 06/09/24 18:16 Globulin 2.2 g/dL (1.3-4.6) 06/09/24 18:16 Triglycerides 96 mg/dL (0-150) 06/10/24 04:03 Cholesterol 160 mg/dL (0-200) 06/10/24 04:03 LDL Cholesterol, Calc 67 mg/dL (50-129) 06/10/24 04:03 HDL Cholesterol 74 mg/dL (60-100) 06/10/24 04:03 LDL/HDL Ratio 0.91 RATIO (0.00-3.22) 06/10/24 04:03 Cholesterol/HDL Ratio 2.16 mg/dL (0.0-4.40) 06/10/24 04:03 Urine Color Yellow (Yellow) 06/09/24 18:57 Urine Appearance Clear (CLEAR) 06/09/24 18:57 Urine pH 7.5 (5-7) 06/09/24 18:57 Ur Specific [place] 1.023 (1.005-1.030) 06/09/24 18:57 Urine Protein Negative (Negative) 06/09/24 18:57 Urine Glucose (UA) Negative (Normal) 06/09/24 18:57 Urine Ketones Negative (Negative) 06/09/24 18:57 Urine Blood Negative (Negative) 06/09/24 18:57 Urine Nitrate Negative (Negative) 06/09/24 18:57 Urine Bilirubin Negative (Negative) 06/09/24 18:57 Urine Urobilinogen 1.0 mg/dL (Negative) 06/09/24 18:57 Ur Leukocyte Esterase 1+ (Negative) A 06/09/24 18:57 Urine RBC 0-2 /hpf (0-2) 06/09/24 18:57 Urine WBC 6-10 /hpf (0-5) 06/09/24 18:57 Ur Squamous Epith Cells 0-5 /hpf (0-5) 06/09/24 18:57 Amorphous Sediment Not Reportable 06/09/24 18:57 Urine Bacteria None seen /hpf (NONE) 06/09/24 18:57 Hyaline Casts 0.81 /lpf 06/09/24 18:57 Urine Opiates Screen Negative ng/mL (Negative) 06/09/24 18:57 Ur Barbiturates Screen Negative ng/mL (Negative) 06/09/24 18:57 Ur Phencyclidine Scrn Negative ng/mL (Negative) 06/09/24 18:57 Ur Amphetamines Screen Negative ng/mL (Negative) 06/09/24 18:57 U Benzodiazepines Scrn Negative ng/mL (Negative) 06/09/24 18:57 Urine Cocaine Screen Negative ng/mL (Negative) 06/09/24 18:57 U Marijuana (THC) Screen Negative ng/mL (Negative) 06/09/24 18:57 Vitals Last Vital Signs Temp 98.3 F 06/11/24 12:06 Pulse 76 06/11/24 12:06 Resp 94 H 06/11/24 12:06 BP 180/80 06/11/24 12:06 Pulse Ox 96 06/11/24 08:00 O2 Del Method Room Air 06/11/24 12:06 Discharge Plan Discharge Patient Disposition: Home Condition: Stable Prescriptions: New clopidogrel 75 mg Tablet 75 mg PO DAILY Qty: 21 0RF duloxetine 30 mg Capsule,Delayed Release(Dr/Ec) 30 mg PO DAILY Qty: 15 0RF Continued multivitamin Tablet 1 tab PO DAILY verapamil 240 mg tablet extended release See Rx Instructions .ROUTE .COMPLEX Qty: 90 1RF Dose Instruction: TAKE 1 TABLET BY MOUTH ONCE DAILY . APPOINTMENT REQUIRED FOR FUTURE REFILLS Rx Instructions: TAKE 1 TABLET BY MOUTH ONCE DAILY . atorvastatin 40 mg tablet See Rx Instructions .ROUTE .COMPLEX Qty: 90 5RF Dose Instruction: TAKE 1 TABLET BY MOUTH ONCE DAILY . APPOINTMENT REQUIRED FOR FUTURE REFILLS Rx Instructions: TAKE 1 TABLET BY MOUTH ONCE DAILY. omeprazole magnesium [Prilosec OTC] 20 mg tablet,delayed release (DR/EC) 20 mg PO DAILY Qty: 90 2RF nitroglycerin [Nitrostat] 0.4 mg tablet, sublingual 0.4 mg SUBLINGUAL Q5M PRN (Reason: chest pain) Qty: 25 6RF Rx Instructions: do not exceed 3 doses per episode aspirin 81 mg Tablet,Delayed Release (Dr/Ec) 81 mg PO DAILY Held hydrochlorothiazide 25 mg tablet 25 mg PO DAILY PRN (Reason: edema) Qty: 90 1RF Hold Instructions: Resume on 06/25/24. losartan 100 mg tablet 100 mg PO DAILY Qty: 90 3RF Hold Instructions: Resume on 06/18/24. Discontinued duloxetine 60 mg capsule,delayed release(DR/EC) See Rx Instructions .ROUTE .COMPLEX Qty: 90 1RF Dose Instruction: Take 1 capsule by mouth once daily Rx Instructions: Take 1 capsule by mouth once daily meloxicam 7.5 mg tablet See Rx Instructions .ROUTE .COMPLEX Qty: 90 1RF Dose Instruction: TAKE 1 TABLET BY MOUTH ONCE DAILY . APPOINTMENT REQUIRED FOR FUTURE REFILLS Rx Instructions: TAKE 1 TABLET BY MOUTH ONCE DAILY . Discharge Orders: Discharge Order (Routine); Ordered 06/11/24 Ordered By: Lauro Tineo Other Ambulatory Orders: Speech Language Pathology Eval and Treat Outpatient (Order) Timeframe: 3 Days Facility: [facility] - Location: [facility] [place] Ordered By: Lauro Tineo Referrals: Daya Bowles MD [Primary Care Provider] - 06/16/24 2:40 pm Discharge Diet: As Directed Discharge Activity: As per PT/OT instructions Patient Instructions: Clopidogrel (By mouth), Aphasia (GEN), Ischemic Stroke (GEN), Atelectasis (GEN) Activity Restrictions/Additional Instructions: Please follow-up with your primary provider for reassessment after stroke. Continue speech therapy. Do not drive until you can be reassessed by primary provider and DMV. Discuss with your primary provider regarding small spot of hemorrhagic transformation in the stroke. As per discussion continue aspirin. Continue Plavix for 21 days only. Please discontinue meloxicam as it can increase risk of heart attack and stroke. Seek medical attention immediately in case of any worsening or new concerning symptoms which may be related to additional stroke or bleeding or seizure activity. Avoid falls or other trauma at all costs. For now your duloxetine dose is decreased down to 30 mg to reduce risk of bleeding with duloxetine. As discussed, resume your medications in a stepwise fashion. Resume verapamil 240 mg daily at current time. Hold off on resuming losartan or hydrochlorothiazide for now. Then in about a week or so if your blood pressures continue to go up above 150/90, add back losartan. Then in about another week or so if needed resume hydrochlorothiazide last. Be aware hydrochlorothiazide can be dehydrating. Avoid dehydration. Continue incentive spirometer at home. Follow-up with your primary provider for reassessment of rounded atelectasis in your left lower lung. Consider repeat imaging to confirm resolution. Discharge Attestations Time Spent in Discharge Care*: greater than 30 min Quality Metrics Clinical Quality Measures [ Cerebrovascular Accident { Contraindication to Antithrombotic: Drug treatment not indicated; Contraindication to Anticoagulation: Overlap treatment not indicated; Contraindication to Statin: None; Statin prescribed;}] Coding Level of Care Code 71914 Total time (in minutes) for Discharge: 60 Diagnoses Stroke-like symptoms R29.90 Essential hypertension I10 Hypertension type: essential hypertension GERD (gastroesophageal reflux disease) K21.9 Fibromyalgia M79.7 Hyperlipemia, mixed E78.2 ASHD (arteriosclerotic heart disease) I25.10
--- NOTE | 2024-06-11 13:56 | PC.NURSE ---
Discharge delayed due to waiting on case management notarization of DPOA.
[2024-06-11 14:40] VITALS: BP 180/80; PULSE 76; RESP 94; TEMP 36.8
== END 2024-06-11 14:41 | disposition home or self-care (01) | DRG 64 ==
LOC: ER 19:52 → MEDSURG 20:16
PROVIDERS: Admitting Provider Internal Medicine; Emergency Provider Emergency Medicine; PCP Family Medicine; Visit Provider Internal Medicine
DX: I63.9 Cerebral infarction, unspecified (principal); I61.9 Nontraumatic intracerebral hemorrhage, unspecified; R47.01 Aphasia; Z87.891 Personal history of nicotine dependence; M79.7 Fibromyalgia; I25.10 Atherosclerotic heart disease of native coronary artery without angina pectoris; Z98.61 Coronary angioplasty status; E78.2 Mixed hyperlipidemia; I10 Essential (primary) hypertension; K21.9 Gastro-esophageal reflux disease without esophagitis
CPT/HCPCS: 36415; 36416; 70450; 70496; 70498; 70551; 71045; 80053; 80061; 80306; 81003; 81015; 82962; 83036; 84443; 85025; 85610; 85730; 92507; 92523; 92526; 92610; 93005; 96372; 97116; 97161; 97165; 99285; C8929; J1650; Q9967

== ENCOUNTER → 2024-06-22 09:24 | Outpatient (BNVA) | payer MEDICARE, SELFPAY | PROVIDERS: PCP Family Medicine; Visit Provider Nurse Practitioner Family | DX: I25.10 Atherosclerotic heart disease of native coronary artery without angina pectoris (principal); Z86.73 Personal history of transient ischemic attack (TIA), and cerebral infarction without residual deficits; Z87.891 Personal history of nicotine dependence | CPT/HCPCS: 99214 ==

== ENCOUNTER 2024-07-07 07:23 | Outpatient (CLI) | payer MEDICARE, SELFPAY ==
[2024-07-07] MEDS: cephALEXin 500 mg Capsule 2000 MG PO (07:44)
[2024-07-07 07:50] LABS: Basophils # 0.1 10^3/uL (0.0-0.1); Basophils % 1.3 %; Eosinophils # 0.2 10^3/uL (0.0-0.8); Eosinophils % 2.9 %; Hematocrit 40.8 % (36-47); Lymphocytes # 1.6 10^3/uL (0.8-4.8); Lymphocytes % 25.8 %; Mean Corpuscular HGB Conc 31.4 g/dL (30-55); Mean Corpuscular Hemoglobin 28.5 pg (27-33); Mean Corpuscular Volume 90.9 fl (85-98); Mean Platelet Volume 10.5 fL (7.4-10.4); Monocytes # 0.6 10^3/uL (0.2-0.9); Monocytes % 8.7 %; Neutrophils # 3.85 10^3/uL (1.8-7.7); Nucleated Red Blood Cells % 0 %; Platelet Count 225 10^3/cmm (157-399); Red Blood Count 4.49 10^6/uL (3.85-5.65); Red Cell Distribution Width 13.8 % (12.1-15.1); White Blood Count 6.31 10^3/uL (3.29-11.43)
[2024-07-07 07:51] VITALS: BP 152/72; PULSE 69; RESP 16; TEMP 36.4; O2SAT 95; BMI 25.7
--- NOTE | 2024-07-07 08:47 | W.PM.OPSUD ---
Surgery/Procedure H&P Update DATE OF PROCEDURE: July 07, 2024 DATE H&P PERFORMED: 06/22/24 H&P UPDATE INFORMATION: I have reviewed H&P completed within last 30 days, I have examined patient prior to procedure and No changes to prior documentation PREOP DIAGNOSIS: Cryptogenic CVA PRIMARY INDICATION FOR PROCEDURE: Cryptogenic CVA, previous event monitor did not show any evidence of atrial fibrillation. Patient continues to have infrequent episodes of palpitations PLANNED PROCEDURE: Operation Date: 07/07/24 08:30 Proposed Procedures p Loop Recorder Insertion(Not Applicable) - Nuris Holden MD
[2024-07-07 09:27] VITALS: BP 144/71; PULSE 67; RESP 16; TEMP 36.4; O2SAT 96
--- NOTE | 2024-07-07 09:39 | P.OP_ITS ---
Operative Report Date of procedure: July 07, 2024 Surgeon: Nuris Holden MD Procedure: Date of Procedure: 07/07/2024 Name of the procedure: IMPLANTABLE HYPERBARIC NURSE INSERTION [facility] REFERRING PROVIDER: Gisela Conley PREOPERATIVE DIAGNOSIS: Cryptogenic stroke POSTOPERATIVE DIAGNOSIS: Same. ESTIMATED BLOOD LOSS: None COMPLICATIONS: None. BRIEF HISTORY: Patient presented with features of embolic CVA. She had an event monitor which didn't reveal any significant arrhythmias to explain the CVA. Apparently her symptoms of palpitations are very infrequent. For further evaluation, an implantable satellite project site monitor was requested PROCEDURE: The procedure was explained to the patient in detail with the risks and benefits. The risk of bleeding, hematoma, vascular injury, infection and other concomitant complications were explained in detail. The patient understood this well and consented to proceed. The patient was brought to the Cardiac Bar Tender. The left side of the chest was cleaned and draped in a sterile fashion. 1% Xylocaine was used as local anesthetic agent. An incision was made in the left fourth intercostal space. Making use of the application device, the implantable satellite project site monitor was inserted, subcutaneously. 5 minutes of manual pressure was applied, at the puncture site. The patient tolerated the procedure very well and there were no complications. No bleeding or hematoma. Steri-Strips were applied over the insertion site followed by a sterile dressing. Patient was sent back to the medical floor in stable condition IMPLANTED DEVICE Reveal LINQ Model number: [id number] Serial number: [id number] Make: [employer] ([place] Parameters: Standard settings were applied( (tachycardia rate of 130 beats per minute , bradycardia rate of 40 beats per minute and a pause of 3 seconds ; symptom recording -4 episodes of 7.5 minutes. Atrial fibrillation detection was turned on- recording threshold of ->6 minutes. Sensitivity was kept at 0.035 mV) The R wave sensing was0.54 mV
== END 2024-07-07 07:24 | disposition home or self-care (01) ==
PROVIDERS: PCP Family Medicine; Visit Provider Internal Medicine Cardiovascular Disease
PROC: (CPT 33285; principal; 2024-07-07 08:30)
DX: I63.9 Cerebral infarction, unspecified (principal); E66.9 Obesity, unspecified; Z68.25 Body mass index [BMI] 25.0-25.9, adult; Z91.81 History of falling; Z98.890 Other specified postprocedural states; Z79.82 Long term (current) use of aspirin; M79.7 Fibromyalgia; E78.2 Mixed hyperlipidemia; Z87.891 Personal history of nicotine dependence; Z86.73 Personal history of transient ischemic attack (TIA), and cerebral infarction without residual deficits; I47.10 Supraventricular tachycardia, unspecified
CPT/HCPCS: 33285; 36415; 85025; C1764; C1769

== ENCOUNTER → 2024-07-14 15:17 | Outpatient (BNVA) | payer MEDICARE, SELFPAY | PROVIDERS: PCP Family Medicine; Visit Provider Nurse Practitioner Family | DX: I47.10 Supraventricular tachycardia, unspecified (principal); I48.91 Unspecified atrial fibrillation; I45.10 Unspecified right bundle-branch block | CPT/HCPCS: 36415; 80048; 93005; 99214 ==

== ENCOUNTER → 2024-07-21 10:32 | Outpatient (BNVA) | payer MEDICARE, SELFPAY | PROVIDERS: PCP Family Medicine; Visit Provider Internal Medicine Cardiovascular Disease | DX: Z45.09 Encounter for adjustment and management of other cardiac device (principal) | CPT/HCPCS: 93298 ==

== ENCOUNTER → 2024-08-10 15:26 | Outpatient (BNVA) | payer MEDICARE, SELFPAY | PROVIDERS: PCP Nurse Practitioner Family; Visit Provider Internal Medicine Cardiovascular Disease | DX: I48.0 Paroxysmal atrial fibrillation (principal); I10 Essential (primary) hypertension | CPT/HCPCS: 99213 ==

== ENCOUNTER → 2024-08-23 13:16 | Outpatient (BNVA) | payer MEDICARE, SELFPAY | PROVIDERS: PCP Nurse Practitioner Family | DX: M81.0 Age-related osteoporosis without current pathological fracture (principal); M54.2 Cervicalgia; M46.00 Spinal enthesopathy, site unspecified; M48.00 Spinal stenosis, site unspecified; M47.899 Other spondylosis, site unspecified | CPT/HCPCS: 72040 ==

== ENCOUNTER → 2024-08-26 09:59 | Outpatient (BNVA) | payer MEDICARE, SELFPAY | PROVIDERS: PCP Nurse Practitioner Family; Visit Provider Internal Medicine Cardiovascular Disease | DX: Z45.09 Encounter for adjustment and management of other cardiac device (principal) | CPT/HCPCS: 93298 ==

== ENCOUNTER → 2024-09-29 08:25 | Outpatient (BNVA) | payer MEDICARE, SELFPAY | PROVIDERS: PCP Nurse Practitioner Family; Visit Provider Internal Medicine Cardiovascular Disease | DX: Z45.09 Encounter for adjustment and management of other cardiac device (principal) | CPT/HCPCS: 93298 ==

== ENCOUNTER → 2024-11-03 15:27 | Outpatient (BNVA) | payer MEDICARE, SELFPAY | PROVIDERS: PCP Nurse Practitioner Family; Visit Provider Nurse Practitioner Family | DX: R60.0 Localized edema (principal); I10 Essential (primary) hypertension; M54.2 Cervicalgia; G89.29 Other chronic pain | CPT/HCPCS: 80053; 80061; 82607; 83735; 84443; 85025 ==

== ENCOUNTER → 2024-11-10 09:24 | Outpatient (BNVA) | payer MEDICARE, SELFPAY | PROVIDERS: PCP Nurse Practitioner Family; Visit Provider Internal Medicine Cardiovascular Disease | DX: Z45.09 Encounter for adjustment and management of other cardiac device (principal) | CPT/HCPCS: 93298 ==

== ENCOUNTER 2024-11-12 11:44 | Outpatient (CLI) | payer MEDICARE, SELFPAY ==
--- NOTE | 2024-11-12 11:45 | MR_ITS ---
WS: [id number] MRI CERVICAL SPINE NONCONTRAST HISTORY: M54.2 - Cervicalgia COMPARISON: None available. Technique: Multiplanar, multisequence noncontrast imaging of the cervical spine. Increase in cervical lordosis. C3 retrolisthesis by 2.5 mm. Disc spaces are all moderately narrowed and desiccated Endplate hypertrophic osteophytes throughout the cervical spine and facet arthritis. Craniocervical junction, C1 and C2 relationship, odontoid process and soft tissues are normal. LEFT c erebellar lacunar infarct. Hypertrophic osteophyte RIGHT lateral C1 articular facet. Facet joint arth ropathy encroaching upon the posterior thoracic cord at T2. C2-C3: Osteophytic ridging and disc bulging. Mild encroachment upon the ventral cord with moderate bi lateral foraminal stenosis. C3-C4: Osteophytic ridging and facet arthritis. Mild central with moderate foraminal stenosis. C4-C5: Annular disc bulging, osteophytic ridging and facet arthritis. Moderate central and bilateral foraminal stenosis. C5-C6: Diffuse annular disc bulging and osteophytic ridging. Effacement of the ventral CSF. Mild bila teral foraminal stenosis. Severe central and bilateral foraminal stenosis. C6-C7: Central disc protrusion with osteophytic ridging and facet arthritis. Moderate central and RIG HT foraminal stenosis. Severe LEFT foraminal stenosis. C7-T1: Normal. Paraspinal soft tissue are normal. MR/MR cervical spin wo con* [id number] IMPRESSION: 1. Advanced degenerative disc disease and facet arthritis. Multilevel areas of stenosis due to combination of osteophyte, disc and facet disease. 2. C5-6: Severe central and bilateral foraminal stenosis due to disc and osteo phyte disease. 3. C6-7: Central disc protrusion with moderate central and RIGHT foraminal tosin nosis. Severe LEFT foraminal stenosis. 4. C4-5: Moderate central and bilateral foraminal stenosis. 5. C3-4: Mild central and moderate foraminal stenosis. 6. C2-3: Moderate foraminal stenosis at C2-3.
--- NOTE | 2024-11-12 12:45 | US_ITS ---
WS: [id number] ULTRASOUND SOFT TISSUES LEFT upper extremity HISTORY: R22.32 - Localized swelling, mass and lump, left upper limb COMPARISON: None available. TECHNIQUE: 2-D and color Doppler imaging is submitted. There is several low-attenuation palpable areas in the LEFT upper extremity. These are very superfici al. These do not seem to elongate on the sagittal imaging. The largest nodule measures 0.7 x 0.7 x 0. 4 cm and may contain partial wall calcification as there is shadowing. These are very nonspecific nod ules. No increased vascularity. US/US soft tissue/extremity [id number] IMPRESSION: Nonspecific isoechoic nodules in the LEFT upper extremity. No increased vascula rity. Does not have appearance of a typical lipoma. If further evaluation is ne cessary clinically MRI of the LEFT upper extremity with and without contrast re commended.
== END 2024-11-12 11:45 | disposition home or self-care (01) ==
LOC: RAD 11:45
PROVIDERS: PCP Nurse Practitioner Family; Visit Provider Nurse Practitioner Family
DX: G89.29 Other chronic pain (principal); M50.321 Other cervical disc degeneration at C4-C5 level; M50.322 Other cervical disc degeneration at C5-C6 level; M50.223 Other cervical disc displacement at C6-C7 level; M25.78 Osteophyte, vertebrae; M47.892 Other spondylosis, cervical region; I63.81 Other cerebral infarction due to occlusion or stenosis of small artery; M50.31 Other cervical disc degeneration, high cervical region; M48.02 Spinal stenosis, cervical region; R93.7 Abnormal findings on diagnostic imaging of other parts of musculoskeletal system; R93.6 Abnormal findings on diagnostic imaging of limbs
CPT/HCPCS: 72141; 76882

== ENCOUNTER → 2024-12-08 15:29 | Outpatient (BNVA) | payer MEDICARE, SELFPAY | PROVIDERS: PCP Nurse Practitioner Family; Visit Provider Nurse Practitioner Family | DX: R79.0 Abnormal level of blood mineral (principal) | CPT/HCPCS: 83735 ==

== ENCOUNTER 2024-12-10 13:16 | Outpatient (CLI) | payer MEDICARE, SELFPAY ==
--- NOTE | 2024-12-10 13:41 | MR_ITS ---
WS: [id number] MRI LEFT HUMERUS WITH AND WITHOUT CONTRAST. COMPARISON: Soft tissue ultrasound 11/12/2024 Multiplanar, multisequence imaging is performed with and without contrast. MultiHance 13 mL. Cluster of small low signal nodules in the soft tissue of the mid LEFT humerus. These nodules are low signal on all sequences and do not enhance. There is some very slight increased signal in soft tissues surrounding these nodules. Due to the signal I suspect these are probably calcific deposits and may be related to prior injection or hematoma. Epidermoid cyst may also calcified. MR/MR humerus LT wo/w con [id number] IMPRESSION: 1. Soft tissue nodules do not enhance in the subcutaneous LEFT upper extremity . Nodules are low signal on all sequences suggesting these are probably calcifi ed nodules. This may be from prior hematoma or injection granulomas. Epidermoid cyst can also calcify. Unless these nodules increase in size or are painful no additional imaging is probably necessary.
== END 2024-12-10 13:17 | disposition home or self-care (01) ==
PROVIDERS: PCP Nurse Practitioner Family; Visit Provider Nurse Practitioner Family
DX: R22.32 Localized swelling, mass and lump, left upper limb (principal)
CPT/HCPCS: 73220

== ENCOUNTER → 2024-12-22 09:21 | Outpatient (BNVA) | payer MEDICARE, SELFPAY | PROVIDERS: PCP Nurse Practitioner Family; Visit Provider Internal Medicine | DX: Z45.09 Encounter for adjustment and management of other cardiac device (principal) | CPT/HCPCS: 93298 ==

== ENCOUNTER → 2025-02-09 11:45 | Outpatient (BNVA) | payer MEDICARE, SELFPAY | PROVIDERS: PCP Nurse Practitioner Family; Visit Provider Internal Medicine Cardiovascular Disease | DX: Z45.09 Encounter for adjustment and management of other cardiac device (principal) | CPT/HCPCS: 93298 ==

== ENCOUNTER → 2025-03-03 12:21 | Outpatient (BNVA) | payer MEDICARE, SELFPAY | PROVIDERS: PCP Nurse Practitioner Family; Visit Provider Internal Medicine Cardiovascular Disease | DX: I48.0 Paroxysmal atrial fibrillation (principal); Z79.01 Long term (current) use of anticoagulants; Z79.82 Long term (current) use of aspirin; I10 Essential (primary) hypertension; W18.31XA Fall on same level due to stepping on an object, initial encounter; Z91.81 History of falling; Y93.K1 Activity, walking an animal; Z98.61 Coronary angioplasty status; Z87.891 Personal history of nicotine dependence | CPT/HCPCS: 99214 ==

== ENCOUNTER → 2025-03-16 09:40 | Outpatient (BNVA) | payer MEDICARE, SELFPAY | PROVIDERS: PCP Nurse Practitioner Family; Visit Provider Internal Medicine | DX: Z45.09 Encounter for adjustment and management of other cardiac device (principal) | CPT/HCPCS: 93298 ==

== ENCOUNTER → 2025-05-18 09:57 | Outpatient (BNVA) | payer MEDICARE, SELFPAY | PROVIDERS: PCP Nurse Practitioner Family; Visit Provider Internal Medicine Cardiovascular Disease | DX: Z45.09 Encounter for adjustment and management of other cardiac device (principal) | CPT/HCPCS: 93298 ==

== ENCOUNTER → 2025-06-23 12:12 | Outpatient (BNVA) | payer MEDICARE, SELFPAY | PROVIDERS: PCP Nurse Practitioner Family; Visit Provider Nurse Practitioner Family | DX: I10 Essential (primary) hypertension (principal) | CPT/HCPCS: 80053; 80061; 84443; 85025 ==

== ENCOUNTER → 2025-07-12 10:55 | Outpatient (BNVA) | payer MEDICARE, SELFPAY | PROVIDERS: PCP Nurse Practitioner Family; Visit Provider Internal Medicine | DX: Z45.09 Encounter for adjustment and management of other cardiac device (principal) | CPT/HCPCS: 93298 ==

== ENCOUNTER → 2025-08-24 11:23 | Outpatient (BNVA) | payer MEDICARE, SELFPAY | PROVIDERS: PCP Nurse Practitioner Family; Visit Provider Internal Medicine | DX: Z45.09 Encounter for adjustment and management of other cardiac device (principal) | CPT/HCPCS: 93298 ==

== ENCOUNTER → 2025-09-15 11:08 | Outpatient (BNVA) | payer MEDICARE, SELFPAY | PROVIDERS: PCP Nurse Practitioner Family; Visit Provider Nurse Practitioner Family | DX: I48.91 Unspecified atrial fibrillation (principal); Z79.01 Long term (current) use of anticoagulants; I25.10 Atherosclerotic heart disease of native coronary artery without angina pectoris; I10 Essential (primary) hypertension; E78.2 Mixed hyperlipidemia; Z87.891 Personal history of nicotine dependence | CPT/HCPCS: 99214 ==

== ENCOUNTER → 2025-10-03 11:36 | Outpatient (BNVA) | payer MEDICARE, SELFPAY | PROVIDERS: PCP Nurse Practitioner Family; Visit Provider Internal Medicine Cardiovascular Disease | DX: Z45.09 Encounter for adjustment and management of other cardiac device (principal) | CPT/HCPCS: 93298 ==